=== PATIENT | male | born 1965 | race Caucasian/White ===

== ENCOUNTER 2018-02-19 05:56 | Inpatient (IN) ==
[2018-02-13 11:54] LABS: Basophils % 0.5 % (0.0-0.8); Eosinophils # 0.3 10*3/uL (0.0-0.87); Eosinophils % 4.5 % (0.00-10.9); Hematocrit 41.9 VOL% (42.0-52.0); Hemoglobin 13.8 GM/DL (14.0-18.0); Immature Granulocytes % 0.5 %; Immature Granulocytes Absolute 0.03 #; Lymphocytes % 31.2 % (21.2-54.2); Mean Corpuscular HGB Conc 32.9 GM/DL (32-36); Mean Corpuscular Hemoglobin 30 PG (27-34); Mean Corpuscular Volume 90.3 FL (87-102); Mean Platelet Volume 9.4 FL (9.6-12.0); Monocytes # 0.5 10*3/uL (0.11-0.8); Monocytes % 7.9 % (1.7-12.7); Neutrophils # 3.6 10*3/uL (1.4-7.4); Neutrophils % 55.4 % (38.7-73.9); Platelet Count 209 T/CUMM (130-400); Red Blood Count 4.64 MC/CUMM (3.8-5.5); Red Cell Distribution Width 12.8 % (9.3-17.3); White Blood Count 6.5 T/CUMM (4-12)
[2018-02-13 12:32] LABS: Albumin 3.9 G/DL (3.4-5.0); Bilirubin,Total 0.5 MG/DL (0.2-1.0); Calcium 8.5 MG/DL (8.5-10.1); Osmolality,Calculated 276.7 MOS/KG (273-304); Potassium 4.3 MMOL/L (3.5-5.1); Total Protein 7.4 G/DL (6.4-8.3)
[2018-02-19] MEDS ORDERED: cefTRIAXone 1,000 MG in SYRINGE 1 EACH IV ONE (06:30)
[2018-02-19] MEDS ORDERED: ceFAZolin 1,000 MG VIAL ONE (06:38)
[2018-02-19] MEDS ORDERED: cefTRIAXone 1,000 MG VIAL ONE ×2 (06:38→10:28)
[2018-02-19] MEDS ORDERED: FAMOTIDINE 20 MG TABLET PO ONE (06:40)
[2018-02-19] MEDS: LACTATED RINGERS 1,000 ML IV SCH ×2 (06:45→09:01)
[2018-02-19] MEDS ORDERED: FAMOTIDINE 20 MG TABLET ONE (06:51)
[2018-02-19 08:36] LABS: Apearance,Urine CLEAR (Clear); Bacteria,Urine Occasional /HPF (Few); Bilirubin,Urine Negative (Negative); Blood, Urine Negative (Negative); Glucose,Urine (UA) Negative (Negative); Ketones,Urine Negative (Negative); Mucus,Urine Occasional /LPF (Occasional); Nitrite,Urine Negative (Negative); Protein,Urine Negative; RBC,Urine 2 /HPF (0-4); Squamous Epithelial Cell,Urine Occasional /HPF (0-10); Urine Color Yellow (Yellow); Urine Specific Gravity 1.015 (1.001-1.035); Urine Urobilinogen < 2.0 EU/DL (0.2-1.0); WBC,Urine <1 /HPF (0-6)
[2018-02-19] MEDS ORDERED: BUPIVACAINE 0.5% 50 ML VIAL ONE (08:39)
[2018-02-19 09:02] LABS: ABG Base Excess -1.6 MMOL/L (-2.5-2.5); ABG Oxygen Saturation 93.6 % (95-100); ABG PCO2 51.6 MM HG (35-48); ABG PH 7.306 (7.35-7.45); ABG PO2 77.3 MM HG (80-95); ABG TCO2 22.4 MMOL/L (23-27); Glucose Heart Surgery 162 MG/DL (74-106); Hematocrit Heart Surgery 43.8 PERCENT (42-52); Hemoglobin Heart Surgery 14.3 G/DL (14.0-18.0); Ionized Calcium Arterial 1.21 MMOL/L (1.21-1.46); PCO2 Patient Temp Arterial 51.6 MMHG; PH Patient Temp Arterial 7.306; PO2 Patient Temp Arterial 77.3 MM HG; Patient Temperature 37 CELCIUS; Potassium Heart/CVR 4.3 MMOL/L (3.5-5.1); Sodium Heart/CVR 137 MMOL/L (135-145)
[2018-02-19 10:08] LABS: ABG Base Excess -2.3 MMOL/L (-2.5-2.5); ABG HCO3 22.4 MMOL/L (20-26); ABG Oxygen Saturation 96.3 % (95-100); ABG PCO2 46.7 MM HG (35-48); ABG PH 7.322 (7.35-7.45); ABG PO2 91.8 MM HG (80-95); Glucose Heart Surgery 171 MG/DL (74-106); Hematocrit Heart Surgery 44.2 PERCENT (42-52); Hemoglobin Heart Surgery 14.4 G/DL (14.0-18.0); PCO2 Patient Temp Arterial 46.7 MMHG; PH Patient Temp Arterial 7.322; PO2 Patient Temp Arterial 91.8 MM HG; Patient Temperature 37 CELCIUS; Potassium Heart/CVR 4.7 MMOL/L (3.5-5.1); Sodium Heart/CVR 138 MMOL/L (135-145)
[2018-02-19] MEDS ORDERED: PROMETHAZINE 25 MG/1 ML VIAL IM PRN (11:03)
[2018-02-19] MEDS ORDERED: HYDROmorphone 2 MG/1 ML VIAL IV PRN (11:03)
[2018-02-19] MEDS ORDERED: LABETALOL 20 MG/4 ML SYRINGE IV PRN (11:10)
[2018-02-19] MEDS ORDERED: ALBUTEROL 1.25 MG/3 ML NEB RESP TX ONE (11:39)
[2018-02-19] MEDS ORDERED: PROPOFOL 200 MG/20 ML VIAL IV ONE (11:44)
[2018-02-19] MEDS ORDERED: DESFLURANE 1 UNIT/15 MINUTE INH ONE (11:45)
[2018-02-19] MEDS ORDERED: PHENYLEPHRINE DRIP 20 MG/250 ML PREMIX IV ONE (11:45)
[2018-02-19] MEDS ORDERED: ONDANSETRON 4 MG/2 ML VIAL ONE ×2 (11:46→11:47)
[2018-02-19] MEDS ORDERED: HYDROmorphone 2 MG/1 ML VIAL ONE ×2 (11:46→11:47)
[2018-02-19] MEDS ORDERED: DEXAMETHASONE 10 MG/1 ML VIAL ONE (11:46)
[2018-02-19] MEDS ORDERED: ALBUTEROL INHALER 8 GM INH ONE (11:46)
[2018-02-19] MEDS ORDERED: GLYCOPYRROLATE 0.4 MG/2 ML VIAL ONE (11:46)
[2018-02-19] MEDS ORDERED: MIDAZOLAM 2 MG/2 ML VIAL ONE (11:46)
[2018-02-19] MEDS ORDERED: PHENYLEPHRINE 1 MG/10 ML SYRINGE IV ONE (11:46)
[2018-02-19] MEDS ORDERED: LACTATED RINGERS 1,000 ML IV ONE (11:47)
[2018-02-19] MEDS ORDERED: ONDANSETRON 4 MG/2 ML VIAL IV PRN (11:47)
[2018-02-19] MEDS ORDERED: ROCURONIUM 100 MG/10 ML VIAL IV ONE (11:47)
[2018-02-19] MEDS ORDERED: NEOSTIGMINE 10 MG/10 ML VIAL ONE (11:47)
[2018-02-19 11:49] LABS: Basophils % 0.2 % (0.0-0.8); Eosinophils # 0.1 10*3/uL (0.0-0.87); Eosinophils % 0.4 % (0.00-10.9); Hematocrit 41.4 VOL% (42.0-52.0); Hemoglobin 13.6 GM/DL (14.0-18.0); Immature Granulocytes % 0.6 %; Immature Granulocytes Absolute 0.07 #; Lymphocytes # 1.7 10*3/uL (1.4-4.0); Lymphocytes % 13.5 % (21.2-54.2); Mean Corpuscular HGB Conc 32.9 GM/DL (32-36); Mean Corpuscular Hemoglobin 30 PG (27-34); Mean Platelet Volume 9.3 FL (9.6-12.0); Monocytes # 0.6 10*3/uL (0.11-0.8); Monocytes % 4.6 % (1.7-12.7); Neutrophils # 10.1 10*3/uL (1.4-7.4); Neutrophils % 80.7 % (38.7-73.9); Platelet Count 239 T/CUMM (130-400); Red Blood Count 4.55 MC/CUMM (3.8-5.5); White Blood Count 12.5 T/CUMM (4-12)
[2018-02-19] MEDS: HYDROmorphone 2 MG/1 ML VIAL IV PRN ×4 (11:50→12:05)
[2018-02-19 12:10] LABS: Osmolality,Calculated 281.5 MOS/KG (273-304); Potassium 4.5 MMOL/L (3.5-5.1)
[2018-02-19] MEDS ORDERED: ACETAMINOPHEN 1,000 MG/100 ML VIAL IV ONE (12:21)
[2018-02-19] MEDS ORDERED: ACETAMINOPHEN INJ 1,000 MG in PREMIX 1 EACH IV STA (12:22)
[2018-02-19] MEDS ORDERED: HYDROmorphone PCA 30 MG/30 ML SYRINGE IV ONE (12:31)
[2018-02-19] MEDS ORDERED: NALOXONE 0.4 MG/ML VIAL IV PRN (12:33)
[2018-02-19] MEDS: HYDROmorphone PCA 30 MG/30 ML SYRINGE IV SCH (12:37)
[2018-02-19] MEDS: ONDANSETRON 4 MG/2 ML VIAL IV PRN ×2 (15:06→19:56)
[2018-02-19] MEDS: LEVODOPA PO SCH ×2 (15:47→23:10)
[2018-02-19] MEDS: rOPINIRole 1 MG TABLET PO SCH ×2 (15:47→23:10)
[2018-02-19] MEDS: CARBIDOPA PO SCH ×2 (15:47→23:10)
[2018-02-19] MEDS: SODIUM CHLORIDE 0.9% 1,000 ML IV SCH ×2 (15:47→23:55)
[2018-02-19] MEDS: ACETAMINOPHEN 325 MG TABLET PO SCH (18:28)
[2018-02-19] MEDS: PANTOPRAZOLE 40 MG TABLET PO SCH (23:10)
[2018-02-19] MEDS: DOCUSATE SODIUM 100 MG CAPSULE PO SCH (23:10)
[2018-02-20] MEDS: ONDANSETRON 4 MG/2 ML VIAL IV PRN ×3 (00:05→23:50)
[2018-02-20] MEDS: ACETAMINOPHEN 325 MG TABLET PO SCH ×5 (00:08→23:51)
[2018-02-20 06:39] LABS: Basophils % 0.1 % (0.0-0.8); Hematocrit 38.9 VOL% (42.0-52.0); Hemoglobin 12.8 GM/DL (14.0-18.0); Immature Granulocytes % 0.5 %; Immature Granulocytes Absolute 0.06 #; Lymphocytes # 1.1 10*3/uL (1.4-4.0); Lymphocytes % 8.5 % (21.2-54.2); Mean Corpuscular HGB Conc 32.9 GM/DL (32-36); Mean Corpuscular Hemoglobin 30 PG (27-34); Mean Corpuscular Volume 90.5 FL (87-102); Monocytes # 0.9 10*3/uL (0.11-0.8); Monocytes % 7.5 % (1.7-12.7); Neutrophils # 10.3 10*3/uL (1.4-7.4); Neutrophils % 83.4 % (38.7-73.9); Platelet Count 239 T/CUMM (130-400); Red Cell Distribution Width 13.3 % (9.3-17.3); White Blood Count 12.4 T/CUMM (4-12)
[2018-02-20 07:09] LABS: Calcium 8.5 MG/DL (8.5-10.1); Osmolality,Calculated 280.5 MOS/KG (273-304)
[2018-02-20] MEDS: SODIUM CHLORIDE 0.9% 1,000 ML IV SCH ×2 (08:34→19:10)
[2018-02-20] MEDS ORDERED: LOSARTAN 50 MG TABLET PO SCH (09:00)
[2018-02-20] MEDS: DOCUSATE SODIUM 100 MG CAPSULE PO SCH ×2 (09:09→20:43)
[2018-02-20] MEDS: FINASTERIDE 5 MG TABLET PO SCH (09:09)
[2018-02-20] MEDS: LORATADINE 10 MG TABLET PO SCH (09:09)
[2018-02-20] MEDS: TAMSULOSIN 0.4 MG CAPSULE PO SCH (09:09)
[2018-02-20] MEDS: CARBIDOPA PO SCH ×3 (09:09→20:45)
[2018-02-20] MEDS: LEVODOPA PO SCH ×3 (09:09→20:45)
[2018-02-20] MEDS: rOPINIRole 1 MG TABLET PO SCH ×3 (09:09→20:45)
[2018-02-20] MEDS: HYDROmorphone PCA 30 MG/30 ML SYRINGE IV SCH (15:29)
[2018-02-20] MEDS ORDERED: FUROSEMIDE 20 MG/2 ML VIAL IV ONE (18:31)
[2018-02-20] MEDS ORDERED: FUROSEMIDE 40 MG/4 ML VIAL ONE (18:37)
[2018-02-20] MEDS: HYDROmorphone 2 MG/1 ML VIAL IV PRN ×2 (20:43→23:49)
[2018-02-20] MEDS: PANTOPRAZOLE 40 MG TABLET PO SCH (20:43)
[2018-02-21] MEDS: HYDROmorphone 2 MG/1 ML VIAL IV PRN (03:36)
[2018-02-21] MEDS: ONDANSETRON 4 MG/2 ML VIAL IV PRN ×5 (03:36→23:31)
[2018-02-21] MEDS: ACETAMINOPHEN 325 MG TABLET PO SCH ×4 (06:01→23:30)
[2018-02-21 07:00] LABS: Calcium 8.4 MG/DL (8.5-10.1); Osmolality,Calculated 282.4 MOS/KG (273-304); Potassium 3.8 MMOL/L (3.5-5.1)
[2018-02-21] MEDS ORDERED: POTASSIUM CHLORIDE 20 MEQ TABLET PO ONE (07:17)
[2018-02-21] MEDS ORDERED: BISACODYL 10 MG SUPP RECTAL ONE (07:18)
[2018-02-21] MEDS ORDERED: SODIUM CHLORIDE 0.9% 500 ML IV ONE ×2 (08:10→08:11)
[2018-02-21] MEDS ORDERED: oxyCODONE/ACETAMINOPHEN 5-325 MG TABLET ONE (08:25)
[2018-02-21] MEDS: FINASTERIDE 5 MG TABLET PO SCH (09:14)
[2018-02-21] MEDS: LORATADINE 10 MG TABLET PO SCH (09:14)
[2018-02-21] MEDS: rOPINIRole 1 MG TABLET PO SCH ×3 (09:14→20:28)
[2018-02-21] MEDS: TAMSULOSIN 0.4 MG CAPSULE PO SCH (09:15)
[2018-02-21] MEDS: DOCUSATE SODIUM 100 MG CAPSULE PO SCH ×2 (09:15→20:28)
[2018-02-21] MEDS: oxyCODONE/ACETAMINOPHEN 5-325 MG TABLET PO PRN ×4 (09:15→23:29)
[2018-02-21] MEDS: LEVODOPA PO SCH ×3 (09:17→20:29)
[2018-02-21] MEDS: CARBIDOPA PO SCH ×3 (09:17→20:29)
[2018-02-21] MEDS: PANTOPRAZOLE 40 MG TABLET PO SCH (20:28)
[2018-02-22] MEDS: oxyCODONE/ACETAMINOPHEN 5-325 MG TABLET PO PRN ×4 (04:17→20:44)
[2018-02-22] MEDS: ONDANSETRON 4 MG/2 ML VIAL IV PRN (04:17)
[2018-02-22] MEDS: ACETAMINOPHEN 325 MG TABLET PO SCH ×3 (05:19→18:49)
[2018-02-22 06:19] LABS: Basophils % 0.2 % (0.0-0.8); Eosinophils # 0.4 10*3/uL (0.0-0.87); Eosinophils % 3.9 % (0.00-10.9); Hematocrit 39.4 VOL% (42.0-52.0); Hemoglobin 12.6 GM/DL (14.0-18.0); Immature Granulocytes % 0.7 %; Immature Granulocytes Absolute 0.06 #; Lymphocytes # 1.5 10*3/uL (1.4-4.0); Lymphocytes % 16.2 % (21.2-54.2); Mean Corpuscular Hemoglobin 29 PG (27-34); Mean Corpuscular Volume 91.8 FL (87-102); Mean Platelet Volume 9.8 FL (9.6-12.0); Monocytes # 0.7 10*3/uL (0.11-0.8); Monocytes % 7.2 % (1.7-12.7); Neutrophils # 6.5 10*3/uL (1.4-7.4); Neutrophils % 71.8 % (38.7-73.9); Platelet Count 221 T/CUMM (130-400); Red Blood Count 4.29 MC/CUMM (3.8-5.5); Red Cell Distribution Width 13.4 % (9.3-17.3)
[2018-02-22 06:31] LABS: Calcium 8.4 MG/DL (8.5-10.1); Osmolality,Calculated 271.1 MOS/KG (273-304); Potassium 3.6 MMOL/L (3.5-5.1)
[2018-02-22] MEDS: LEVODOPA PO SCH ×3 (08:54→20:44)
[2018-02-22] MEDS: CARBIDOPA PO SCH ×3 (08:54→20:44)
[2018-02-22] MEDS: FINASTERIDE 5 MG TABLET PO SCH (08:55)
[2018-02-22] MEDS: DOCUSATE SODIUM 100 MG CAPSULE PO SCH ×2 (08:55→20:44)
[2018-02-22] MEDS: LORATADINE 10 MG TABLET PO SCH (08:55)
[2018-02-22] MEDS: TAMSULOSIN 0.4 MG CAPSULE PO SCH (08:55)
[2018-02-22] MEDS: rOPINIRole 1 MG TABLET PO SCH ×3 (08:56→20:44)
[2018-02-22] MEDS: ONDANSETRON 4 MG TABLET PO PRN ×3 (09:08→20:44)
[2018-02-22] MEDS: PANTOPRAZOLE 40 MG TABLET PO SCH (20:44)
[2018-02-23] MEDS: ACETAMINOPHEN 325 MG TABLET PO SCH ×2 (00:40→06:10)
[2018-02-23 07:36] VITALS: BP 136/71
[2018-02-23] MEDS: FINASTERIDE 5 MG TABLET PO SCH (08:51)
[2018-02-23] MEDS: DOCUSATE SODIUM 100 MG CAPSULE PO SCH (08:51)
[2018-02-23] MEDS: LORATADINE 10 MG TABLET PO SCH (08:51)
[2018-02-23] MEDS: TAMSULOSIN 0.4 MG CAPSULE PO SCH (08:51)
[2018-02-23] MEDS: LEVODOPA PO SCH (09:09)
[2018-02-23] MEDS: CARBIDOPA PO SCH (09:09)
[2018-02-23] MEDS: rOPINIRole 1 MG TABLET PO SCH (09:11)
[2018-02-23] MEDS: ONDANSETRON 4 MG TABLET PO PRN (10:25)
[2018-02-23] MEDS: oxyCODONE/ACETAMINOPHEN 5-325 MG TABLET PO PRN (10:25)
== END 2018-02-23 10:56 | disposition home health service (06) | DRG 657 ==
LOC: N.OR 05:56 → N.SDSINP 05:58 → N.5E 11:03
PROVIDERS: ADMIT Surgery; ATTEND Surgery

== ENCOUNTER 2020-06-24 11:08 | Observation (INO) ==
[~2020-06-24 11:08] MED LIST: PANTOPRAZOLE 40 MG VIAL IV SCH
[2020-06-24] MEDS ORDERED: SODIUM CHLORIDE 0.9% 500 ML IV STA (11:45)
[2020-06-24] MEDS ORDERED: INSULIN REGULAR 100 UNIT/ML IV STA (11:47)
[2020-06-24 12:30] LABS: Basophils # 0.1 10*3/uL (0.0-0.2); Basophils % 0.7 % (0.0-0.8); Eosinophils # 0.3 10*3/uL (0.0-0.87); Eosinophils % 4.4 % (0.00-10.9); Hematocrit 44.8 VOL% (42.0-52.0); Hemoglobin 15.1 GM/DL (14.0-18.0); Immature Granulocytes % 0.6 %; Immature Granulocytes Absolute 0.04 #; Lymphocytes # 1.9 10*3/uL (1.4-4.0); Lymphocytes % 27.7 % (21.2-54.2); Mean Corpuscular HGB Conc 33.7 GM/DL (32-36); Mean Corpuscular Volume 86.7 FL (87-102); Mean Platelet Volume 10.3 FL (9.6-12.0); Monocytes % 7.7 % (1.7-12.7); Neutrophils % 58.9 % (38.7-73.9); Platelet Count 215 T/CUMM (130-400); Red Blood Count 5.17 MC/CUMM (3.8-5.5); Red Cell Distribution Width 13.1 % (9.3-17.3); White Blood Count 6.9 T/CUMM (4-12)
[2020-06-24 12:41] LABS: ABG Base Excess -4.8 MMOL/L (-2.5-2.5); ABG HCO3 20.4 MMOL/L (20-26); ABG Oxygen Saturation 95.8 % (95-100); ABG PCO2 35.6 MM HG (35-48); ABG PH 7.357 (7.35-7.45); ABG PO2 83.6 MM HG (80-95)
[2020-06-24 12:53] LABS: Alanine Aminotransferase 19 U/L (16-61); Albumin 3.8 G/DL (3.4-5.0); Alkaline Phosphatase 134 U/L (45-117); Aspartate Amino Transferase 16 U/L (0-37); Blood Urea Nitrogen 25 MG/DL (7-18); Carbon Dioxide 20 MMOL/L (21-32); Estimated Glom Filtration Rate 101 ML/MIN; Osmolality,Calculated 292.7 MOS/KG (273-304); Potassium 4.3 MMOL/L (3.5-5.1); Sodium 131 MMOL/L (136-145)
[2020-06-24 12:55] LABS: Glucose 579 MG/DL (74-106)
[2020-06-24 13:45] LABS: Barbiturates Screen,Urine Negative (Negative); Benzodiazepines Screen,Urine Negative (Negative); Cannabinoid Screen,Urine Negative (Negative); Opiate Screen,Urine Negative (Negative); Phencyclidine Screen,Urine Negative (Negative)
[2020-06-24 14:42] LABS: Bilirubin,Urine Negative (Negative); Blood, Urine Negative (Negative); Glucose,Urine (UA) >=500 mg/dL (Negative); Ketones,Urine 20 mg/dL (Negative); Mucus,Urine Occasional /LPF (Occasional); Nitrite,Urine Negative (Negative); Protein,Urine Negative; RBC,Urine 1 /HPF (0-4); Urine Appearance CLEAR (Clear); Urine Color Straw (Yellow); Urine Specific Gravity 1.026 (1.001-1.035); Urine Urobilinogen < 2.0 EU/DL (0.2-1.0); WBC,Urine <1 /HPF (0-6)
[2020-06-24] MEDS ORDERED: ONDANSETRON 4 MG/2 ML VIAL IV PRN (15:09)
[2020-06-24] MEDS ORDERED: hydrALAZINE 20 MG/1 ML VIAL IV PRN (15:09)
[2020-06-24] MEDS ORDERED: GLUCAGON 1 MG VIAL IM PRN ×2 (15:09)
[2020-06-24] MEDS ORDERED: AZITHROMYCIN INJ 500 MG in SODIUM CHLORIDE 0.9% 250 ML IV ONE (15:09)
[2020-06-24] MEDS ORDERED: DEXTROSE 50% 25 GM/50 ML VIAL IV PRN ×2 (15:09)
[2020-06-24] MEDS ORDERED: ENOXAPARIN 40 MG/0.4 ML SYRINGE SUBCUT SCH (15:30)
[2020-06-24] MEDS ORDERED: INSULIN LISPRO 100 UNIT/ML SUBCUT SCH (16:30)
[2020-06-24] MEDS ORDERED: cefTRIAXone 1,000 MG in SYRINGE 1 EACH IV SCH (18:30)
[2020-06-24] MEDS: ALBUTEROL/IPRATROPIUM 3 ML NEB RESP TX SCH (19:06)
[2020-06-24] MEDS: INSULIN LISPRO 100 UNIT/ML SUBCUT SCH ×3 (19:07→23:41)
[2020-06-24 19:27] LABS: Calcium 9.1 MG/DL (8.5-10.1); Osmolality,Calculated 285.1 MOS/KG (273-304); Potassium 3.6 MMOL/L (3.5-5.1)
[2020-06-24 19:30] LABS: ABG Base Excess -1.7 MMOL/L (-2.5-2.5); ABG HCO3 22.9 MMOL/L (20-26); ABG Oxygen Saturation 92.6 % (95-100); ABG PCO2 35.9 MM HG (35-48); ABG PH 7.405 (7.35-7.45); ABG PO2 65.1 MM HG (80-95); ABG TCO2 19.3 MMOL/L (23-27); Allen Test Positive; Pt O2 Delivery Device Room Air
[2020-06-24] MEDS: SODIUM CHLORIDE 0.9% 1,000 ML IV SCH (20:14)
[2020-06-24] MEDS ORDERED: PANTOPRAZOLE 40 MG VIAL IV SCH (21:00)
[2020-06-25] MEDS: ALBUTEROL/IPRATROPIUM 3 ML NEB RESP TX SCH ×2 (00:04→07:33)
[2020-06-25] MEDS: INSULIN LISPRO 100 UNIT/ML SUBCUT SCH ×3 (00:35→04:31)
[2020-06-25] MEDS: SODIUM CHLORIDE 0.9% 1,000 ML IV SCH ×2 (02:55→09:14)
[2020-06-25 04:00] LABS: ABG Base Excess 0.4 MMOL/L (-2.5-2.5); ABG HCO3 24.7 MMOL/L (20-26); ABG Oxygen Saturation 95.3 % (95-100); ABG PH 7.427 (7.35-7.45); ABG PO2 73.6 MM HG (80-95); ABG TCO2 21.1 MMOL/L (23-27); Allen Test Positive; Pt O2 Delivery Device Room Air
[2020-06-25 06:47] LABS: Basophils % 0.5 % (0.0-0.8); Eosinophils # 0.4 10*3/uL (0.0-0.87); Eosinophils % 5.6 % (0.00-10.9); Hematocrit 38.8 VOL% (42.0-52.0); Hemoglobin 13.4 GM/DL (14.0-18.0); Immature Granulocytes % 0.5 %; Immature Granulocytes Absolute 0.03 #; Lymphocytes # 2.5 10*3/uL (1.4-4.0); Lymphocytes % 38.4 % (21.2-54.2); Mean Corpuscular HGB Conc 34.5 GM/DL (32-36); Mean Corpuscular Volume 86.8 FL (87-102); Mean Platelet Volume 10.4 FL (9.6-12.0); Monocytes % 8.2 % (1.7-12.7); Neutrophils % 46.8 % (38.7-73.9); Platelet Count 200 T/CUMM (130-400); Red Blood Count 4.47 MC/CUMM (3.8-5.5); Red Cell Distribution Width 13.2 % (9.3-17.3); White Blood Count 6.5 T/CUMM (4-12)
[2020-06-25 07:07] LABS: Calcium 8.3 MG/DL (8.5-10.1); Osmolality,Calculated 285.3 MOS/KG (273-304); Potassium 3.3 MMOL/L (3.5-5.1)
[2020-06-25 07:09] LABS: Bilirubin,Total 1.1 MG/DL (0.2-1.0); Calcium 8.4 MG/DL (8.5-10.1); Osmolality,Calculated 283.4 MOS/KG (273-304); Potassium 3.3 MMOL/L (3.5-5.1); Risk Ratio 4.34; Total Protein 6.3 G/DL (6.4-8.3); VLDL CHOLESTEROL 31.4 MG/DL
[2020-06-25] MEDS ORDERED: INSULIN LISPRO 100 UNIT/ML SUBCUT SCH (08:00)
[2020-06-25 12:27] VITALS: BP 133/79
[2020-06-25] MEDS ORDERED: AZITHROMYCIN INJ 250 MG in SODIUM CHLORIDE 0.9% 250 ML IV SCH (16:00)
== END 2020-06-25 13:22 | disposition home or self-care (01) ==
LOC: N.ED 11:08 → N.EDINP 11:08 → SUATTDRO 15:02 → N.EDINP 17:45 → N.5E 17:49
PROVIDERS: ADMIT Internal Medicine; ATTEND Internal Medicine

== ENCOUNTER 2020-11-18 16:02 | Inpatient (IN) ==
[2020-11-18 16:28] LABS: Basophils % 0.3 % (0.0-0.8); Eosinophils # 0.4 10*3/uL (0.0-0.87); Eosinophils % 3.9 % (0.00-10.9); Hematocrit 42.2 VOL% (42.0-52.0); Hemoglobin 14.3 GM/DL (14.0-18.0); Immature Granulocytes % 0.3 %; Immature Granulocytes Absolute 0.03 #; Lymphocytes # 2.4 10*3/uL (1.4-4.0); Lymphocytes % 27.5 % (21.2-54.2); Mean Corpuscular HGB Conc 33.9 GM/DL (32-36); Mean Corpuscular Volume 86.5 FL (87-102); Mean Platelet Volume 9.4 FL (9.6-12.0); Platelet Count 217 T/CUMM (130-400); Red Blood Count 4.88 MC/CUMM (3.8-5.5); Red Cell Distribution Width 13.4 % (9.3-17.3); White Blood Count 8.9 T/CUMM (4-12)
[2020-11-18 16:53] LABS: Alanine Aminotransferase 19 U/L (16-61); Albumin 4.2 G/DL (3.4-5.0); Alkaline Phosphatase 66 U/L (45-117); Aspartate Amino Transferase 15 U/L (0-37); Bilirubin,Total < 0.39 MG/DL (0.20-1.00); Blood Urea Nitrogen 18 MG/DL (7-18); Calcium 9.2 MG/DL (8.5-10.1); Carbon Dioxide 25 MMOL/L (21-32); Estimated Glom Filtration Rate 83 ML/MIN; Glucose 109 MG/DL (74-106); Osmolality,Calculated 283.3 MOS/KG (273-304); Potassium 3.9 MMOL/L (3.5-5.1); Sodium 141 MMOL/L (136-145); Total Protein 7.2 G/DL (6.4-8.2)
[2020-11-18] MEDS ORDERED: ASPIRIN 325 MG TABLET PO STA (17:13)
[2020-11-18] MEDS: NITROGLYCERIN SL 0.4 MG TABLET SL PRN (17:23)
[2020-11-18 18:09] LABS: INR 0.9; PT Patient Result 9.9 SECS (10.5-12.0)
[2020-11-18 20:30] LABS: Risk Ratio 3.47
[2020-11-18] MEDS ORDERED: GLUCAGON 1 MG VIAL IM PRN (21:51)
[2020-11-18] MEDS ORDERED: ACETAMINOPHEN 325 MG TABLET PO PRN (21:51)
[2020-11-18] MEDS ORDERED: DEXTROSE 50% 25 GM/50 ML VIAL IV PRN (21:51)
[2020-11-18] MEDS ORDERED: hydrALAZINE 20 MG/1 ML VIAL IV PRN (21:51)
[2020-11-18] MEDS ORDERED: PROMETHAZINE 25 MG/1 ML VIAL IM PRN (21:51)
[2020-11-18] MEDS: ENOXAPARIN 40 MG/0.4 ML SYRINGE SUBCUT SCH (22:52)
[2020-11-18] MEDS: POLYETHYLENE GLYCOL POWDER 255 GM BOTTLE PO SCH (22:52)
[2020-11-18] MEDS: TAMSULOSIN 0.4 MG CAPSULE PO SCH (22:52)
[2020-11-18] MEDS: SODIUM CHLORIDE 0.9% 1,000 ML IV SCH (23:40)
[2020-11-19 04:22] LABS: Basophils % 0.3 % (0.0-0.8); Eosinophils # 0.3 10*3/uL (0.0-0.87); Eosinophils % 4.1 % (0.00-10.9); Hematocrit 42.7 VOL% (42.0-52.0); Hemoglobin 14.1 GM/DL (14.0-18.0); Immature Granulocytes % 0.4 %; Immature Granulocytes Absolute 0.03 #; Mean Corpuscular Volume 87.5 FL (87-102); Mean Platelet Volume 9.6 FL (9.6-12.0); Monocytes % 7.5 % (1.7-12.7); Neutrophils % 58.7 % (38.7-73.9); Platelet Count 182 T/CUMM (130-400); Red Blood Count 4.88 MC/CUMM (3.8-5.5); Red Cell Distribution Width 13.4 % (9.3-17.3); White Blood Count 6.8 T/CUMM (4-12)
[2020-11-19 05:00] LABS: Albumin 3.7 G/DL (3.4-5.0); Bilirubin,Total 0.4 MG/DL (0.20-1.00); Calcium 8.4 MG/DL (8.5-10.1); Osmolality,Calculated 281.1 MOS/KG (273-304); Potassium 3.7 MMOL/L (3.5-5.1); Total Protein 6.8 G/DL (6.4-8.2)
[2020-11-19] MEDS: LEVODOPA PO SCH ×3 (08:03→16:36)
[2020-11-19] MEDS: CARBIDOPA PO SCH ×3 (08:03→16:36)
[2020-11-19] MEDS: rOPINIRole 1 MG TABLET PO SCH ×3 (08:04→16:36)
[2020-11-19] MEDS: INSULIN LISPRO 100 UNIT/ML SUBCUT SCH ×4 (09:05→20:52)
[2020-11-19] MEDS: OLMESARTAN 5 MG TABLET PO SCH (09:06)
[2020-11-19] MEDS: MULTIVITAMIN (CENTRUM) TABLET PO SCH (09:06)
[2020-11-19] MEDS: INSULIN GLARGINE 100 UNIT/ML SUBCUT SCH (09:06)
[2020-11-19] MEDS: PANTOPRAZOLE 40 MG TABLET PO SCH (09:07)
[2020-11-19] MEDS: FENOFIBRATE 145 MG TABLET PO SCH (09:07)
[2020-11-19] MEDS: EZETIMIBE 10 MG TABLET PO SCH (09:07)
[2020-11-19] MEDS: FINASTERIDE 5 MG TABLET PO SCH (09:07)
[2020-11-19] MEDS: LORATADINE 10 MG TABLET PO SCH (09:07)
[2020-11-19] MEDS: AMANTADINE 100 MG CAPSULE PO SCH (09:07)
[2020-11-19] MEDS: ASPIRIN EC 81 MG TABLET PO SCH (09:07)
[2020-11-19] MEDS: DILTIAZEM CD 180 MG CAPSULE PO SCH (09:08)
[2020-11-19] MEDS: SODIUM CHLORIDE 0.9% 1,000 ML IV SCH ×3 (09:48→20:39)
[2020-11-19] MEDS: POLYETHYLENE GLYCOL POWDER 255 GM BOTTLE PO SCH (20:52)
[2020-11-19] MEDS: TAMSULOSIN 0.4 MG CAPSULE PO SCH (21:17)
[2020-11-19] MEDS: ENOXAPARIN 40 MG/0.4 ML SYRINGE SUBCUT SCH (21:18)
[2020-11-20] MEDS: NITROGLYCERIN SL 0.4 MG TABLET SL PRN (00:13)
[2020-11-20] MEDS: ONDANSETRON 4 MG/2 ML VIAL IV PRN (01:20)
[2020-11-20] MEDS: HYDROmorphone 2 MG/1 ML VIAL IV PRN (01:21)
[2020-11-20] MEDS: SODIUM CHLORIDE 0.9% 1,000 ML IV SCH ×3 (04:22→16:28)
[2020-11-20 05:54] LABS: Basophils % 0.4 % (0.0-0.8); Eosinophils # 0.3 10*3/uL (0.0-0.87); Eosinophils % 4.1 % (0.00-10.9); Hematocrit 43.7 VOL% (42.0-52.0); Hemoglobin 14.4 GM/DL (14.0-18.0); Immature Granulocytes % 0.3 %; Immature Granulocytes Absolute 0.02 #; Lymphocytes # 2.1 10*3/uL (1.4-4.0); Mean Corpuscular Volume 88.1 FL (87-102); Mean Platelet Volume 9.7 FL (9.6-12.0); Monocytes % 9.2 % (1.7-12.7); Platelet Count 180 T/CUMM (130-400); Red Blood Count 4.96 MC/CUMM (3.8-5.5); Red Cell Distribution Width 13.6 % (9.3-17.3); White Blood Count 7.4 T/CUMM (4-12)
[2020-11-20 06:21] LABS: Albumin 3.6 G/DL (3.4-5.0); Bilirubin,Total 1.1 MG/DL (0.20-1.00); Calcium 8.6 MG/DL (8.5-10.1); Osmolality,Calculated 275.7 MOS/KG (273-304); Potassium 3.8 MMOL/L (3.5-5.1); Total Protein 7.2 G/DL (6.4-8.2)
[2020-11-20] MEDS: rOPINIRole 1 MG TABLET PO SCH ×3 (06:31→16:28)
[2020-11-20] MEDS: LEVODOPA PO SCH ×3 (06:31→16:28)
[2020-11-20] MEDS: CARBIDOPA PO SCH ×3 (06:31→16:28)
[2020-11-20] MEDS: INSULIN LISPRO 100 UNIT/ML SUBCUT SCH ×4 (07:30→21:19)
[2020-11-20] MEDS: EZETIMIBE 10 MG TABLET PO SCH (08:06)
[2020-11-20] MEDS: MULTIVITAMIN (CENTRUM) TABLET PO SCH (08:07)
[2020-11-20] MEDS: AMANTADINE 100 MG CAPSULE PO SCH (08:07)
[2020-11-20] MEDS: ASPIRIN EC 81 MG TABLET PO SCH (08:07)
[2020-11-20] MEDS: FENOFIBRATE 145 MG TABLET PO SCH (08:07)
[2020-11-20] MEDS: OLMESARTAN 5 MG TABLET PO SCH (08:07)
[2020-11-20] MEDS: FINASTERIDE 5 MG TABLET PO SCH (08:07)
[2020-11-20] MEDS: LORATADINE 10 MG TABLET PO SCH (08:07)
[2020-11-20] MEDS: PANTOPRAZOLE 40 MG TABLET PO SCH (08:08)
[2020-11-20] MEDS: DILTIAZEM CD 180 MG CAPSULE PO SCH (08:08)
[2020-11-20] MEDS: INSULIN GLARGINE 100 UNIT/ML SUBCUT SCH (08:09)
[2020-11-20] MEDS: POLYETHYLENE GLYCOL POWDER 255 GM BOTTLE PO SCH ×2 (12:53→21:19)
[2020-11-20] MEDS: ENOXAPARIN 40 MG/0.4 ML SYRINGE SUBCUT SCH (21:16)
[2020-11-20] MEDS: TAMSULOSIN 0.4 MG CAPSULE PO SCH (21:17)
[2020-11-21] MEDS: ONDANSETRON 4 MG/2 ML VIAL IV PRN ×3 (00:02→22:56)
[2020-11-21] MEDS: HYDROmorphone 2 MG/1 ML VIAL IV PRN ×3 (00:03→22:56)
[2020-11-21] MEDS: SODIUM CHLORIDE 0.9% 1,000 ML IV SCH ×4 (02:41→22:40)
[2020-11-21 05:17] LABS: Calcium 8.7 MG/DL (8.5-10.1); Osmolality,Calculated 276.5 MOS/KG (273-304)
[2020-11-21] MEDS: LEVODOPA PO SCH ×3 (06:03→16:26)
[2020-11-21] MEDS: rOPINIRole 1 MG TABLET PO SCH ×3 (06:03→16:26)
[2020-11-21] MEDS: CARBIDOPA PO SCH ×3 (06:03→16:26)
[2020-11-21] MEDS: INSULIN LISPRO 100 UNIT/ML SUBCUT SCH ×4 (07:44→21:10)
[2020-11-21] MEDS: PANTOPRAZOLE 40 MG TABLET PO SCH (08:17)
[2020-11-21] MEDS: MULTIVITAMIN (CENTRUM) TABLET PO SCH (08:17)
[2020-11-21] MEDS: OLMESARTAN 5 MG TABLET PO SCH (08:17)
[2020-11-21] MEDS: EZETIMIBE 10 MG TABLET PO SCH (08:17)
[2020-11-21] MEDS: AMANTADINE 100 MG CAPSULE PO SCH (08:18)
[2020-11-21] MEDS: FENOFIBRATE 145 MG TABLET PO SCH (08:18)
[2020-11-21] MEDS: ASPIRIN EC 81 MG TABLET PO SCH (08:18)
[2020-11-21] MEDS: FINASTERIDE 5 MG TABLET PO SCH (08:18)
[2020-11-21] MEDS: LORATADINE 10 MG TABLET PO SCH (08:18)
[2020-11-21] MEDS: INSULIN GLARGINE 100 UNIT/ML SUBCUT SCH (08:19)
[2020-11-21] MEDS: DILTIAZEM CD 180 MG CAPSULE PO SCH (08:19)
[2020-11-21] MEDS: POLYETHYLENE GLYCOL POWDER 255 GM BOTTLE PO SCH ×2 (09:34→21:10)
[2020-11-21] MEDS: TAMSULOSIN 0.4 MG CAPSULE PO SCH (21:07)
[2020-11-21] MEDS: ENOXAPARIN 40 MG/0.4 ML SYRINGE SUBCUT SCH (21:07)
[2020-11-22 05:53] LABS: Osmolality,Calculated 277.5 MOS/KG (273-304); Potassium 4.2 MMOL/L (3.5-5.1)
[2020-11-22] MEDS: HYDROmorphone 2 MG/1 ML VIAL IV PRN ×2 (06:08→16:32)
[2020-11-22] MEDS: ONDANSETRON 4 MG/2 ML VIAL IV PRN ×2 (06:08→16:29)
[2020-11-22] MEDS: rOPINIRole 1 MG TABLET PO SCH ×3 (07:39→17:53)
[2020-11-22] MEDS: CARBIDOPA PO SCH ×3 (07:39→17:53)
[2020-11-22] MEDS: LEVODOPA PO SCH ×3 (07:39→17:53)
[2020-11-22] MEDS: SODIUM CHLORIDE 0.9% 1,000 ML IV SCH ×2 (08:34→17:56)
[2020-11-22] MEDS: INSULIN LISPRO 100 UNIT/ML SUBCUT SCH ×4 (09:28→21:41)
[2020-11-22] MEDS: DILTIAZEM CD 180 MG CAPSULE PO SCH (15:01)
[2020-11-22] MEDS: MULTIVITAMIN (CENTRUM) TABLET PO SCH (15:02)
[2020-11-22] MEDS: ASPIRIN EC 81 MG TABLET PO SCH (15:02)
[2020-11-22] MEDS: OLMESARTAN 5 MG TABLET PO SCH (15:02)
[2020-11-22] MEDS: FINASTERIDE 5 MG TABLET PO SCH (15:03)
[2020-11-22] MEDS: LORATADINE 10 MG TABLET PO SCH (15:03)
[2020-11-22] MEDS: EZETIMIBE 10 MG TABLET PO SCH (15:03)
[2020-11-22] MEDS: PANTOPRAZOLE 40 MG TABLET PO SCH (15:03)
[2020-11-22] MEDS: AMANTADINE 100 MG CAPSULE PO SCH (15:03)
[2020-11-22] MEDS: INSULIN GLARGINE 100 UNIT/ML SUBCUT SCH (15:06)
[2020-11-22] MEDS: FENOFIBRATE 145 MG TABLET PO SCH (15:09)
[2020-11-22] MEDS: POLYETHYLENE GLYCOL POWDER 255 GM BOTTLE PO SCH (21:40)
[2020-11-22] MEDS: TAMSULOSIN 0.4 MG CAPSULE PO SCH (21:40)
[2020-11-22] MEDS: ENOXAPARIN 40 MG/0.4 ML SYRINGE SUBCUT SCH (21:40)
[2020-11-23] MEDS: HYDROmorphone 2 MG/1 ML VIAL IV PRN (04:08)
[2020-11-23] MEDS: ONDANSETRON 4 MG/2 ML VIAL IV PRN (04:09)
[2020-11-23] MEDS: SODIUM CHLORIDE 0.9% 1,000 ML IV SCH ×2 (05:05→13:37)
[2020-11-23 05:09] LABS: Calcium 9.1 MG/DL (8.5-10.1); Osmolality,Calculated 276.5 MOS/KG (273-304); Potassium 3.9 MMOL/L (3.5-5.1)
[2020-11-23] MEDS: rOPINIRole 1 MG TABLET PO SCH ×2 (06:23→11:52)
[2020-11-23] MEDS: LEVODOPA PO SCH ×2 (06:23→11:52)
[2020-11-23] MEDS: CARBIDOPA PO SCH ×2 (06:23→11:52)
[2020-11-23] MEDS: OLMESARTAN 5 MG TABLET PO SCH (09:23)
[2020-11-23] MEDS: FINASTERIDE 5 MG TABLET PO SCH (09:23)
[2020-11-23] MEDS: EZETIMIBE 10 MG TABLET PO SCH (09:23)
[2020-11-23] MEDS: DILTIAZEM CD 180 MG CAPSULE PO SCH (09:24)
[2020-11-23] MEDS: LORATADINE 10 MG TABLET PO SCH (09:24)
[2020-11-23] MEDS: AMANTADINE 100 MG CAPSULE PO SCH (09:24)
[2020-11-23] MEDS: FENOFIBRATE 145 MG TABLET PO SCH (09:24)
[2020-11-23] MEDS: MULTIVITAMIN (CENTRUM) TABLET PO SCH (09:24)
[2020-11-23] MEDS: ASPIRIN EC 81 MG TABLET PO SCH (09:24)
[2020-11-23] MEDS: PANTOPRAZOLE 40 MG TABLET PO SCH (09:24)
[2020-11-23] MEDS: INSULIN LISPRO 100 UNIT/ML SUBCUT SCH ×2 (09:25→11:43)
[2020-11-23] MEDS: INSULIN GLARGINE 100 UNIT/ML SUBCUT SCH (09:26)
[2020-11-23 11:47] VITALS: BP 134/80
== END 2020-11-23 14:33 | disposition home or self-care (01) | DRG 439 ==
LOC: N.ED 16:02 → N.EDINP 16:02 → SUATTDRO 20:13 → N.TELEN 21:09 → SUATTDRO 11-21 12:53
PROVIDERS: ADMIT Internal Medicine; ATTEND Internal Medicine Geriatric Medicine

== ENCOUNTER 2022-04-23 15:32 | Inpatient (IN) ==
[2022-04-23] MEDS ORDERED: SODIUM CHLORIDE 0.9% 1,000 ML IV STA ×2 (16:28→19:02)
[2022-04-23] MEDS ORDERED: ONDANSETRON 4 MG/2 ML VIAL IM STA (16:28)
[2022-04-23 16:42] LABS: Basophils % 0.2 % (0.0-0.8); Eosinophils % 0.2 % (0.00-10.9); Hemoglobin 11.2 GM/DL (14.0-18.0); Immature Granulocytes % 0.5 %; Immature Granulocytes Absolute 0.03 #; Lymphocytes # 0.2 10*3/uL (1.4-4.0); Lymphocytes % 3.4 % (21.2-54.2); Mean Corpuscular HGB Conc 33.9 GM/DL (32-36); Mean Corpuscular Volume 90.9 FL (87-102); Monocytes # 0.7 10*3/uL (0.11-0.8); Monocytes % 11.3 % (1.7-12.7); Neutrophils % 84.4 % (38.7-73.9); Platelet Count 62 T/CUMM (130-400); Red Blood Count 3.63 MC/CUMM (3.8-5.5); Red Cell Distribution Width 13.2 % (9.3-17.3); White Blood Count 5.9 T/CUMM (4-12)
[2022-04-23 16:43] LABS: Arterial Base Excess iSTAT 0 MMOL/L (-2.5-2.5); Arterial Bicarbonate iSTAT 21.1 MMOL/L (20-26); Arterial O2 Saturation iSTAT 97 % (95-100); Arterial PCO2 iSTAT 24 MM HG (35-48); Arterial PO2 iSTAT 76 MM HG (80-95); Arterial Total CO2 iSTAT 22 MMO/L (23-27); Arterial pH iSTAT 7.557 (7.35-7.45)
[2022-04-23] MEDS ORDERED: ACETAMINOPHEN 500 MG TABLET PO STA (17:05)
[2022-04-23 17:09] LABS: Albumin 2.5 G/DL (3.4-5.0); Calcium 7.9 MG/DL (8.5-10.1); Osmolality,Calculated 273.8 MOS/KG (273-304); Potassium 3.5 MMOL/L (3.5-5.1); Total Protein 5.4 G/DL (6.4-8.2)
[2022-04-23 17:16] LABS: INR 3.9; PT Patient Result 39.2 SECS (10.1-12.1)
[2022-04-23 17:22] LABS: Eosinophils 1 % (0-10); Lymphocytes 4 % (20-55); Platelet Estimate Decreased; Total Cells Counted 100
[2022-04-23 19:37] LABS: Bilirubin,Urine Large mg/dL (Negative); Blood, Urine Small mg/dL (Negative); Glucose,Urine (UA) Negative (Negative); Ketones,Urine Trace mg/dL (Negative); Nitrite,Urine Negative (Negative); Protein,Urine 100 mg/dL (Negative); Urine Appearance Slightly Cloudy (Clear); Urine Color Yellow (Yellow); Urine Urobilinogen 0.2 eU/dL (<2.0); Urine pH 5.5 (4.5-8.0)
[2022-04-23 19:40] LABS: Bacteria,Urine Many /HPF (Few); Mucus,Urine Moderate /LPF (Occasional); Sperm,Urine Occasional /HPF (Negative); Squamous Epithelial Cell,Urine Occasional /HPF (0-10)
[2022-04-23] MEDS ORDERED: PIPERACILLIN/TAZOBACTAM 3,375 MG in SODIUM CHLORIDE 0.9% 100 ML IV STA (19:48)
[2022-04-23] MEDS ORDERED: ACETAMINOPHEN 325 MG TABLET PO PRN (21:00)
[2022-04-23] MEDS ORDERED: ZALEPLON 5 MG CAPSULE PO PRN (21:00)
[2022-04-23 21:28] LABS: % Iron Saturation 7.9 % (18-50); Ferritin 647.3 ng/mL (26-388)
[2022-04-23 21:31] LABS: Folate 16.19 NG/ML (5.38-24.0)
[2022-04-24] MEDS: SODIUM CHLORIDE 0.9% 1,000 ML IV SCH ×4 (00:35→21:27)
[2022-04-24 01:16] LABS: Eosinophils % 0.8 % (0.00-10.9); Hematocrit 32.1 VOL% (42.0-52.0); Hemoglobin 10.6 GM/DL (14.0-18.0); Immature Granulocytes % 1.3 %; Immature Granulocytes Absolute 0.05 #; Lymphocytes # 0.3 10*3/uL (1.4-4.0); Lymphocytes % 7.8 % (21.2-54.2); Mean Corpuscular Volume 91.5 FL (87-102); Mean Platelet Volume 11.6 FL (9.6-12.0); Monocytes # 0.3 10*3/uL (0.11-0.8); Monocytes % 8.6 % (1.7-12.7); Neutrophils % 81.5 % (38.7-73.9); Platelet Count 48 T/CUMM (130-400); Red Blood Count 3.51 MC/CUMM (3.8-5.5); Red Cell Distribution Width 13.2 % (9.3-17.3); White Blood Count 3.7 T/CUMM (4-12)
[2022-04-24] MEDS: MORPHINE 2 MG/1 ML SYRINGE IV PRN ×4 (01:25→21:45)
[2022-04-24 01:40] LABS: Alanine Aminotransferase 31 U/L (16-61); Albumin 2.2 G/DL (3.4-5.0); Alkaline Phosphatase 256 U/L (45-117); Aspartate Amino Transferase 129 U/L (0-37); Blood Urea Nitrogen 34 MG/DL (7-18); Calcium 8.1 MG/DL (8.5-10.1); Carbon Dioxide 24 MMOL/L (21-32); Chloride 100 MMOL/L (98-107); Cholesterol 134 MG/DL (50-200); Glucose 145 MG/DL (74-106); HDL Cholesterol < 10 MG/DL (40-60); Osmolality,Calculated 276.4 MOS/KG (273-304); Potassium 3.2 MMOL/L (3.5-5.1); Sodium 133 MMOL/L (136-145); Total Protein 5.6 G/DL (6.4-8.2); Triglycerides 267 MG/DL (2-150); VLDL Cholesterol 53.4 MG/DL
[2022-04-24 01:47] LABS: Eosinophils 2 % (0-10); Lymphocytes 7 % (20-55); Platelet Estimate Decreased; Total Cells Counted 100
[2022-04-24] MEDS: PIPERACILLIN/TAZOBACTAM 3,375 MG in SODIUM CHLORIDE 0.9% 100 ML IV SCH ×3 (05:40→21:32)
[2022-04-24] MEDS ORDERED: POTASSIUM CHLORIDE 20 MEQ TABLET PO ONE (07:37)
[2022-04-24] MEDS ORDERED: ENOXAPARIN 40 MG/0.4 ML SYRINGE SUBCUT SCH (09:00)
[2022-04-24] MEDS: PANTOPRAZOLE 40 MG TABLET PO SCH (09:20)
[2022-04-24] MEDS: OSELTAMIVIR 75 MG CAPSULE PO SCH ×2 (09:20→21:27)
[2022-04-24] MEDS: INSULIN REGULAR 100 UNIT/ML SUBCUT SCH ×4 (09:20→21:27)
[2022-04-24] MEDS: ONDANSETRON 4 MG/2 ML VIAL IV PRN ×2 (11:01→17:11)
[2022-04-24] MEDS: GABAPENTIN 300 MG CAPSULE PO SCH ×2 (15:11→21:27)
[2022-04-24] MEDS: rOPINIRole 1 MG TABLET PO SCH (15:11)
[2022-04-24] MEDS: BACLOFEN 10 MG TABLET PO SCH ×2 (15:11→21:27)
[2022-04-24] MEDS: TAMSULOSIN 0.4 MG CAPSULE PO SCH (21:27)
[2022-04-25] MEDS: MORPHINE 2 MG/1 ML SYRINGE IV PRN ×5 (02:30→20:21)
[2022-04-25] MEDS: SODIUM CHLORIDE 0.9% 1,000 ML IV SCH ×2 (05:04→20:21)
[2022-04-25 05:34] LABS: Eosinophils % 0.7 % (0.00-10.9); Hematocrit 28.3 VOL% (42.0-52.0); Hemoglobin 9.5 GM/DL (14.0-18.0); Immature Granulocytes % 7.6 %; Immature Granulocytes Absolute 0.33 #; Lymphocytes # 0.2 10*3/uL (1.4-4.0); Lymphocytes % 4.4 % (21.2-54.2); Mean Corpuscular HGB Conc 33.6 GM/DL (32-36); Mean Platelet Volume 12.1 FL (9.6-12.0); Monocytes # 0.6 10*3/uL (0.11-0.8); Monocytes % 14.3 % (1.7-12.7); Platelet Count 59 T/CUMM (130-400); Red Blood Count 3.11 MC/CUMM (3.8-5.5); Red Cell Distribution Width 13.5 % (9.3-17.3); White Blood Count 4.4 T/CUMM (4-12)
[2022-04-25] MEDS: PIPERACILLIN/TAZOBACTAM 3,375 MG in SODIUM CHLORIDE 0.9% 100 ML IV SCH ×3 (05:50→20:16)
[2022-04-25 05:57] LABS: Band Neutrophils 6 % (0-10); Hypochromia Slight; Lymphocytes 1 % (20-55); Microcytosis Slight; Platelet Estimate Decreased; Total Cells Counted 100
[2022-04-25 05:59] LABS: Albumin 1.8 G/DL (3.4-5.0); Calcium 7.8 MG/DL (8.5-10.1); Potassium 3.1 MMOL/L (3.5-5.1); Total Protein 4.9 G/DL (6.4-8.2)
[2022-04-25] MEDS: rOPINIRole 1 MG TABLET PO SCH ×3 (06:49→15:45)
[2022-04-25] MEDS: ONDANSETRON 4 MG/2 ML VIAL IV PRN ×4 (06:53→20:21)
[2022-04-25] MEDS ORDERED: POTASSIUM CHLORIDE 20 MEQ TABLET PO ONE (07:17)
[2022-04-25] MEDS: MULTIVITAMIN (CENTRUM) TABLET PO SCH (08:53)
[2022-04-25] MEDS: FINASTERIDE 5 MG TABLET PO SCH (08:54)
[2022-04-25] MEDS: PANTOPRAZOLE 40 MG TABLET PO SCH (08:54)
[2022-04-25] MEDS: GABAPENTIN 300 MG CAPSULE PO SCH ×3 (08:54→20:15)
[2022-04-25] MEDS: OSELTAMIVIR 75 MG CAPSULE PO SCH ×2 (08:54→20:15)
[2022-04-25] MEDS: BACLOFEN 10 MG TABLET PO SCH ×3 (08:54→20:15)
[2022-04-25] MEDS: INSULIN REGULAR 100 UNIT/ML SUBCUT SCH ×4 (08:55→21:23)
[2022-04-25] MEDS: TAMSULOSIN 0.4 MG CAPSULE PO SCH (20:15)
[2022-04-26] MEDS: ONDANSETRON 4 MG/2 ML VIAL IV PRN ×3 (01:37→11:01)
[2022-04-26] MEDS: MORPHINE 2 MG/1 ML SYRINGE IV PRN ×3 (01:38→10:58)
[2022-04-26] MEDS: SODIUM CHLORIDE 0.9% 1,000 ML IV SCH (05:46)
[2022-04-26] MEDS: PIPERACILLIN/TAZOBACTAM 3,375 MG in SODIUM CHLORIDE 0.9% 100 ML IV SCH (05:52)
[2022-04-26 06:14] LABS: Eosinophils # 0.1 10*3/uL (0.0-0.87); Eosinophils % 2.3 % (0.00-10.9); Hematocrit 31.1 VOL% (42.0-52.0); Hemoglobin 10.3 GM/DL (14.0-18.0); Immature Granulocytes % 0.4 %; Immature Granulocytes Absolute 0.02 #; Lymphocytes # 0.4 10*3/uL (1.4-4.0); Lymphocytes % 7.4 % (21.2-54.2); Mean Corpuscular HGB Conc 33.1 GM/DL (32-36); Mean Corpuscular Volume 92.3 FL (87-102); Monocytes # 0.4 10*3/uL (0.11-0.8); Monocytes % 8.1 % (1.7-12.7); Neutrophils % 81.8 % (38.7-73.9); Platelet Count 97 T/CUMM (130-400); Red Blood Count 3.37 MC/CUMM (3.8-5.5); Red Cell Distribution Width 14.2 % (9.3-17.3); White Blood Count 5.3 T/CUMM (4-12)
[2022-04-26 06:20] LABS: Osmolality,Calculated 276.7 MOS/KG (273-304); Potassium 3.9 MMOL/L (3.5-5.1)
[2022-04-26 06:27] LABS: Free T4 (Free Thyroxine) 1.11 NG/DL (0.76-1.46)
[2022-04-26] MEDS: rOPINIRole 1 MG TABLET PO SCH ×2 (07:10→12:35)
[2022-04-26] MEDS: INSULIN REGULAR 100 UNIT/ML SUBCUT SCH ×2 (09:36→12:35)
[2022-04-26] MEDS: BACLOFEN 10 MG TABLET PO SCH (09:45)
[2022-04-26] MEDS: GABAPENTIN 300 MG CAPSULE PO SCH (09:45)
[2022-04-26] MEDS: PANTOPRAZOLE 40 MG TABLET PO SCH (09:45)
[2022-04-26] MEDS: FINASTERIDE 5 MG TABLET PO SCH (09:45)
[2022-04-26] MEDS: MULTIVITAMIN (CENTRUM) TABLET PO SCH (09:45)
[2022-04-26] MEDS: OSELTAMIVIR 75 MG CAPSULE PO SCH (11:42)
[2022-04-26 11:49] VITALS: BP 98/56
== END 2022-04-26 14:00 | disposition home or self-care (01) | DRG 872 ==
LOC: N.ED 15:32 → N.EDINP 20:59 → N.TELEN 04-24 00:47
PROVIDERS: ADMIT Internal Medicine Geriatric Medicine; ATTEND Internal Medicine Geriatric Medicine

== ENCOUNTER 2022-05-08 14:40 | Inpatient (IN) ==
[2022-05-08] MEDS ORDERED: SODIUM CHLORIDE 0.9% 1,000 ML IV STA (15:08)
[2022-05-08 15:57] LABS: Eosinophils % 0.4 % (0.00-10.9); Hematocrit 19.4 VOL% (42.0-52.0); Hemoglobin 6.8 GM/DL (14.0-18.0); Immature Granulocytes % 1.7 %; Immature Granulocytes Absolute 0.08 #; Lymphocytes # 0.2 10*3/uL (1.4-4.0); Lymphocytes % 3.4 % (21.2-54.2); Mean Corpuscular HGB Conc 35.1 GM/DL (32-36); Mean Corpuscular Volume 82.2 FL (87-102); Mean Platelet Volume 10.5 FL (9.6-12.0); Monocytes # 0.4 10*3/uL (0.11-0.8); Monocytes % 8.1 % (1.7-12.7); Neutrophils % 86.4 % (38.7-73.9); Platelet Count 192 T/CUMM (130-400); Red Blood Count 2.36 MC/CUMM (3.8-5.5); White Blood Count 4.7 T/CUMM (4-12)
[2022-05-08] MEDS: NOREPINEPHRINE DRIP 8 MG/250 ML PREMIX IV PRN ×2 (16:00→22:18)
[2022-05-08] MEDS ORDERED: NOREPINEPHRINE 4 MG/4 ML VIAL IV ONE (16:12)
[2022-05-08 16:16] LABS: Albumin 1.2 G/DL (3.4-5.0); Osmolality,Calculated 272.9 MOS/KG (273-304); PT Patient Result 125.3 SECS (10.1-12.1); Partial Thromboplastin Time 62.5 SECS (23.7-32.9); Potassium 3.8 MMOL/L (3.5-5.1); Total Protein 4.4 G/DL (6.4-8.2)
[2022-05-08 16:18] LABS: INR 13.7
[2022-05-08 16:30] LABS: Band Neutrophils 5 % (0-10); Lymphocytes 2 % (20-55); Total Cells Counted 100
[2022-05-08 16:31] LABS: Hypochromia 1+; Target Cells Few
[2022-05-08 16:32] LABS: Microcytosis Slight; Platelet Estimate Adequate
[2022-05-08 16:34] LABS: Bilirubin,Total 21.3 MG/DL (0.20-1.00)
[2022-05-08] MEDS ORDERED: ALBUTEROL 2.5 MG/3 ML NEB RESP TX PRN (18:02)
[2022-05-08] MEDS ORDERED: ONDANSETRON 4 MG/2 ML VIAL IV PRN (18:02)
[2022-05-08] MEDS ORDERED: GLUCAGON 1 MG VIAL IM PRN (18:02)
[2022-05-08] MEDS ORDERED: DEXTROSE 50% 25 GM/50 ML SYRINGE IV PRN (18:11)
[2022-05-08] MEDS ORDERED: FUROSEMIDE 100 MG/10 ML VIAL IV ONE (20:00)
[2022-05-08 21:25] LABS: Bacteria,Urine Occasional /HPF (Few); Bilirubin,Urine Large mg/dL (Negative); Blood, Urine Negative (Negative); Glucose,Urine (UA) Negative (Negative); Ketones,Urine Negative (Negative); Mucus,Urine Occasional /LPF (Occasional); Nitrite,Urine Negative (Negative); Protein,Urine Negative (Negative); Squamous Epithelial Cell,Urine Occasional /HPF (0-10); Urine Appearance Clear (Clear); Urine Color Yellow (Yellow); Urine pH 5.5 (4.5-8.0)
[2022-05-08 21:26] LABS: Urine Urobilinogen 0.2 eU/dL (<2.0)
[2022-05-08] MEDS: INSULIN LISPRO 100 UNIT/ML SUBCUT SCH (22:15)
[2022-05-08] MEDS: LOPERAMIDE 2 MG CAPSULE PO SCH (22:16)
[2022-05-08] MEDS: GABAPENTIN 300 MG CAPSULE PO SCH (22:17)
[2022-05-08] MEDS: ONDANSETRON ODT 4 MG TABLET PO SCH (22:17)
[2022-05-08] MEDS: [UNRECOGNIZED DRUG - REMARK] PO SCH (22:26)
[2022-05-08] MEDS: LIPASE PROTEASE AMYLASE PO SCH (22:26)
[2022-05-09] MEDS: oxyCODONE IR 5 MG TABLET PO SCH ×5 (00:24→17:19)
[2022-05-09] MEDS: NOREPINEPHRINE DRIP 8 MG/250 ML PREMIX IV PRN ×4 (02:01→22:01)
[2022-05-09 05:26] LABS: Basophils % 0.1 % (0.0-0.8); Eosinophils % 0.2 % (0.00-10.9); Hematocrit 30.4 VOL% (42.0-52.0); Hemoglobin 10.6 GM/DL (14.0-18.0); Immature Granulocytes % 2.5 %; Immature Granulocytes Absolute 0.24 #; Lymphocytes # 0.2 10*3/uL (1.4-4.0); Lymphocytes % 2.2 % (21.2-54.2); Mean Corpuscular HGB Conc 34.9 GM/DL (32-36); Mean Corpuscular Volume 81.9 FL (87-102); Mean Platelet Volume 10.5 FL (9.6-12.0); Monocytes # 0.6 10*3/uL (0.11-0.8); Monocytes % 6.6 % (1.7-12.7); Neutrophils % 88.4 % (38.7-73.9); Platelet Count 304 T/CUMM (130-400); Red Blood Count 3.71 MC/CUMM (3.8-5.5); Red Cell Distribution Width 16.9 % (9.3-17.3); White Blood Count 9.7 T/CUMM (4-12)
[2022-05-09 05:41] LABS: INR 4.1; PT Patient Result 41.1 SECS (10.1-12.1)
[2022-05-09 06:00] LABS: Alanine Aminotransferase 22 U/L (16-61); Albumin 1.5 G/DL (3.4-5.0); Alkaline Phosphatase 469 U/L (45-117); Aspartate Amino Transferase 69 U/L (0-37); Blood Urea Nitrogen 52 MG/DL (7-18); Calcium 8.1 MG/DL (8.5-10.1); Carbon Dioxide 18 MMOL/L (21-32); Chloride 100 MMOL/L (98-107); Glucose 260 MG/DL (74-106); Osmolality,Calculated 284.7 MOS/KG (273-304); Potassium 3.5 MMOL/L (3.5-5.1); Sodium 131 MMOL/L (136-145); Total Protein 5.2 G/DL (6.4-8.2)
[2022-05-09 06:09] LABS: Band Neutrophils 3 % (0-10); Lymphocytes 1 % (20-55); Total Cells Counted 100
[2022-05-09 06:10] LABS: Hypochromia Slight; Microcytosis Slight; Platelet Estimate Normal; Target Cells Slight
[2022-05-09] MEDS: CARBIDOPA PO SCH ×3 (06:14→16:45)
[2022-05-09] MEDS: rOPINIRole 1 MG TABLET PO SCH ×3 (06:14→16:45)
[2022-05-09] MEDS: LEVODOPA PO SCH ×3 (06:14→16:45)
[2022-05-09] MEDS ORDERED: FUROSEMIDE 100 MG/10 ML VIAL IV ONE ×2 (07:29→17:00)
[2022-05-09] MEDS ORDERED: SODIUM CHLORIDE 0.9% 1,000 ML IV PRN (07:29)
[2022-05-09] MEDS: INSULIN LISPRO 100 UNIT/ML SUBCUT SCH ×4 (09:53→20:52)
[2022-05-09] MEDS: INSULIN GLARGINE 100 UNIT/ML SUBCUT SCH (09:54)
[2022-05-09] MEDS: AMANTADINE 100 MG CAPSULE PO SCH (09:54)
[2022-05-09] MEDS: LOPERAMIDE 2 MG CAPSULE PO SCH ×3 (09:55→17:18)
[2022-05-09] MEDS: FINASTERIDE 5 MG TABLET PO SCH (09:55)
[2022-05-09] MEDS: PANTOPRAZOLE 40 MG TABLET PO SCH (09:55)
[2022-05-09] MEDS: LORATADINE 10 MG TABLET PO SCH (09:55)
[2022-05-09] MEDS: GABAPENTIN 300 MG CAPSULE PO SCH ×3 (09:55→20:53)
[2022-05-09] MEDS: ONDANSETRON ODT 4 MG TABLET PO SCH ×4 (10:02→20:54)
[2022-05-09] MEDS ORDERED: PHYTONADIONE 10 MG/1 ML AMP SUBCUT ONE (11:16)
[2022-05-09 13:00] LABS: INR 2.8; PT Patient Result 28.4 SECS (10.1-12.1)
[2022-05-09] MEDS: MEROPENEM 500 MG in SODIUM CHLORIDE 0.9% 100 ML IV SCH (14:26)
[2022-05-09] MEDS: LIPASE PROTEASE AMYLASE PO SCH ×3 (14:33→16:45)
[2022-05-09] MEDS: [UNRECOGNIZED DRUG - REMARK] PO SCH ×2 (14:39→20:53)
[2022-05-09] MEDS ORDERED: LOPERAMIDE 2 MG CAPSULE PO PRN (17:35)
[2022-05-09] MEDS: ZINC OXIDE PASTE 113 GM TUBE TOP SCH (20:52)
[2022-05-10] MEDS: MEROPENEM 500 MG in SODIUM CHLORIDE 0.9% 100 ML IV SCH ×2 (00:15→14:53)
[2022-05-10 04:27] LABS: Basophils % 0.1 % (0.0-0.8); Eosinophils # 0.1 10*3/uL (0.0-0.87); Eosinophils % 0.7 % (0.00-10.9); Hematocrit 27.4 VOL% (42.0-52.0); Hemoglobin 9.8 GM/DL (14.0-18.0); Immature Granulocytes % 2.2 %; Immature Granulocytes Absolute 0.17 #; Lymphocytes # 0.4 10*3/uL (1.4-4.0); Lymphocytes % 5.3 % (21.2-54.2); Mean Corpuscular HGB Conc 35.8 GM/DL (32-36); Mean Corpuscular Volume 78.3 FL (87-102); Mean Platelet Volume 10.3 FL (9.6-12.0); Monocytes # 0.8 10*3/uL (0.11-0.8); Neutrophils % 81.7 % (38.7-73.9); Platelet Count 225 T/CUMM (130-400); Red Cell Distribution Width 16.2 % (9.3-17.3); White Blood Count 7.6 T/CUMM (4-12)
[2022-05-10 04:36] LABS: INR 1.9; PT Patient Result 20.3 SECS (10.1-12.1)
[2022-05-10] MEDS: ZINC OXIDE PASTE 113 GM TUBE TOP SCH ×3 (04:37→20:24)
[2022-05-10 04:55] LABS: Eosinophils 1 % (0-10); Hypochromia Slight; Lymphocytes 5 % (20-55); Microcytosis Slight; Nucleated Red Blood Cells 1 /100 WBC (0-5); Platelet Estimate Adequate; Target Cells Slight; Total Cells Counted 100
[2022-05-10 04:56] LABS: Albumin 1.7 G/DL (3.4-5.0); Calcium 7.7 MG/DL (8.5-10.1); Osmolality,Calculated 280.4 MOS/KG (273-304); Potassium 2.7 MMOL/L (3.5-5.1); Total Protein 5.3 G/DL (6.4-8.2)
[2022-05-10 05:08] LABS: Bilirubin,Total 27.5 MG/DL (0.20-1.00)
[2022-05-10] MEDS: NOREPINEPHRINE DRIP 8 MG/250 ML PREMIX IV PRN ×2 (05:26→17:50)
[2022-05-10] MEDS: rOPINIRole 1 MG TABLET PO SCH ×3 (06:02→15:57)
[2022-05-10] MEDS: CARBIDOPA PO SCH ×3 (06:02→15:57)
[2022-05-10] MEDS: LEVODOPA PO SCH ×3 (06:02→15:57)
[2022-05-10] MEDS ORDERED: POTASSIUM CHLORIDE 20 MEQ TABLET PO ONE (07:54)
[2022-05-10] MEDS: POTASSIUM CHLORIDE RIDER 20 MEQ/100 ML PREMIX IV SCH ×2 (08:30→10:24)
[2022-05-10] MEDS: INSULIN LISPRO 100 UNIT/ML SUBCUT SCH ×4 (08:43→21:45)
[2022-05-10] MEDS ORDERED: PHYTONADIONE 10 MG/1 ML AMP SUBCUT ONE (09:00)
[2022-05-10] MEDS ORDERED: ALUMINUM/MAGNES/SIMETH MAX STR 30 ML UDCUP PO ONE (10:04)
[2022-05-10] MEDS: INSULIN GLARGINE 100 UNIT/ML SUBCUT SCH (10:23)
[2022-05-10] MEDS: GABAPENTIN 300 MG CAPSULE PO SCH ×3 (10:23→20:23)
[2022-05-10] MEDS: LIPASE PROTEASE AMYLASE PO SCH ×3 (10:43→15:57)
[2022-05-10] MEDS: ONDANSETRON ODT 4 MG TABLET PO SCH ×4 (10:43→20:23)
[2022-05-10 13:35] LABS: Calcium 7.8 MG/DL (8.5-10.1); Osmolality,Calculated 282.2 MOS/KG (273-304); Potassium 3.1 MMOL/L (3.5-5.1)
[2022-05-10] MEDS ORDERED: fentaNYL 100 MCG/2 ML VIAL ONE (14:24)
[2022-05-10] MEDS: [UNRECOGNIZED DRUG - REMARK] PO SCH ×2 (14:52→20:25)
[2022-05-10] MEDS: FINASTERIDE 5 MG TABLET PO SCH (15:57)
[2022-05-10] MEDS: AMANTADINE 100 MG CAPSULE PO SCH (15:57)
[2022-05-10] MEDS: LORATADINE 10 MG TABLET PO SCH (15:57)
[2022-05-10] MEDS: PANTOPRAZOLE 40 MG TABLET PO SCH (15:57)
[2022-05-10] MEDS ORDERED: ALUMINUM/MAGNES/SIMETH MAX STR 30 ML UDCUP PO PRN (18:04)
[2022-05-10] MEDS ORDERED: MAGNESIUM SULF RIDER 4 GM/100 ML PREMIX IV PRN (21:16)
[2022-05-11] MEDS: MEROPENEM 500 MG in SODIUM CHLORIDE 0.9% 100 ML IV SCH ×2 (00:48→11:41)
[2022-05-11] MEDS: oxyCODONE IR 5 MG TABLET PO PRN (01:25)
[2022-05-11] MEDS ORDERED: METOPROLOL TARTRATE 5 MG/5 ML VIAL IV ONE ×3 (01:34→08:36)
[2022-05-11] MEDS: MAGNESIUM SULF RIDER 2 GM/50 ML PREMIX IV PRN (02:03)
[2022-05-11] MEDS: SIMETHICONE CHEW 125 MG TABLET PO PRN (05:45)
[2022-05-11 05:46] LABS: Basophils % 0.3 % (0.0-0.8); Eosinophils # 0.2 10*3/uL (0.0-0.87); Hematocrit 29.8 VOL% (42.0-52.0); Hemoglobin 10.8 GM/DL (14.0-18.0); Immature Granulocytes % 3.1 %; Immature Granulocytes Absolute 0.23 #; Lymphocytes # 0.3 10*3/uL (1.4-4.0); Lymphocytes % 4.4 % (21.2-54.2); Mean Corpuscular HGB Conc 36.2 GM/DL (32-36); Mean Corpuscular Volume 78.8 FL (87-102); Mean Platelet Volume 10.3 FL (9.6-12.0); Monocytes # 0.6 10*3/uL (0.11-0.8); Monocytes % 7.5 % (1.7-12.7); Neutrophils % 82.7 % (38.7-73.9); Platelet Count 249 T/CUMM (130-400); Red Blood Count 3.78 MC/CUMM (3.8-5.5); Red Cell Distribution Width 16.7 % (9.3-17.3); White Blood Count 7.5 T/CUMM (4-12)
[2022-05-11 05:55] LABS: INR 1.2; PT Patient Result 12.7 SECS (10.1-12.1)
[2022-05-11] MEDS: rOPINIRole 1 MG TABLET PO SCH ×3 (06:14→16:01)
[2022-05-11] MEDS: LEVODOPA PO SCH ×3 (06:15→16:02)
[2022-05-11] MEDS: CARBIDOPA PO SCH ×3 (06:15→16:02)
[2022-05-11 06:17] LABS: Eosinophils 3 % (0-10); Hypochromia Slight; Lymphocytes 5 % (20-55); Microcytosis Slight; Platelet Estimate Adequate; Target Cells Few; Total Cells Counted 100
[2022-05-11 06:22] LABS: Albumin 1.6 G/DL (3.4-5.0); Calcium 8.2 MG/DL (8.5-10.1); Osmolality,Calculated 279.5 MOS/KG (273-304); Total Protein 5.3 G/DL (6.4-8.2)
[2022-05-11 06:25] LABS: Bilirubin,Total 22.8 MG/DL (0.20-1.00)
[2022-05-11] MEDS: INSULIN LISPRO 100 UNIT/ML SUBCUT SCH ×4 (08:02→20:26)
[2022-05-11] MEDS: PANTOPRAZOLE 40 MG TABLET PO SCH (08:04)
[2022-05-11] MEDS: GABAPENTIN 300 MG CAPSULE PO SCH ×3 (08:04→20:25)
[2022-05-11] MEDS: LORATADINE 10 MG TABLET PO SCH (08:04)
[2022-05-11] MEDS: FINASTERIDE 5 MG TABLET PO SCH (08:05)
[2022-05-11] MEDS: AMANTADINE 100 MG CAPSULE PO SCH (08:05)
[2022-05-11] MEDS: ONDANSETRON ODT 4 MG TABLET PO SCH ×4 (08:05→20:25)
[2022-05-11] MEDS: LIPASE PROTEASE AMYLASE PO SCH ×3 (08:07→16:03)
[2022-05-11] MEDS: [UNRECOGNIZED DRUG - REMARK] PO SCH ×2 (08:19→20:25)
[2022-05-11] MEDS: NOREPINEPHRINE DRIP 8 MG/250 ML PREMIX IV PRN ×3 (08:40→23:59)
[2022-05-11] MEDS: DILTIAZEM CD 180 MG CAPSULE PO SCH (08:47)
[2022-05-11] MEDS: INSULIN GLARGINE 100 UNIT/ML SUBCUT SCH (09:14)
[2022-05-11] MEDS: ZINC OXIDE PASTE 113 GM TUBE TOP SCH ×2 (09:14→20:26)
[2022-05-11] MEDS ORDERED: POTASSIUM CHLORIDE 20 MEQ TABLET PO ONE ×2 (09:51→16:00)
[2022-05-11] MEDS ORDERED: DEXTROSE 10% 250 ML BAG IV PRN (11:52)
[2022-05-11] MEDS ORDERED: GLUCAGON 1 MG VIAL IM PRN (11:52)
[2022-05-12] MEDS: MEROPENEM 500 MG in SODIUM CHLORIDE 0.9% 100 ML IV SCH ×2 (00:03→12:07)
[2022-05-12] MEDS: LEVODOPA PO SCH ×3 (06:33→16:30)
[2022-05-12] MEDS: CARBIDOPA PO SCH ×3 (06:33→16:30)
[2022-05-12] MEDS: ONDANSETRON ODT 4 MG TABLET PO SCH ×4 (06:34→20:42)
[2022-05-12] MEDS: rOPINIRole 1 MG TABLET PO SCH ×3 (06:34→16:30)
[2022-05-12] MEDS: LIPASE PROTEASE AMYLASE PO SCH ×3 (06:34→16:30)
[2022-05-12 07:54] LABS: Basophils % 0.3 % (0.0-0.8); Eosinophils # 0.2 10*3/uL (0.0-0.87); Eosinophils % 2.6 % (0.00-10.9); Hematocrit 31.2 VOL% (42.0-52.0); Immature Granulocytes % 2.3 %; Immature Granulocytes Absolute 0.18 #; Lymphocytes # 0.5 10*3/uL (1.4-4.0); Lymphocytes % 5.9 % (21.2-54.2); Mean Corpuscular HGB Conc 35.3 GM/DL (32-36); Mean Corpuscular Volume 81.3 FL (87-102); Mean Platelet Volume 10.1 FL (9.6-12.0); Monocytes # 0.7 10*3/uL (0.11-0.8); Monocytes % 8.8 % (1.7-12.7); Neutrophils % 80.1 % (38.7-73.9); Platelet Count 256 T/CUMM (130-400); Red Blood Count 3.84 MC/CUMM (3.8-5.5); Red Cell Distribution Width 16.9 % (9.3-17.3)
[2022-05-12 08:03] LABS: Calcium 8.2 MG/DL (8.5-10.1); Osmolality,Calculated 276.4 MOS/KG (273-304); Potassium 4.2 MMOL/L (3.5-5.1)
[2022-05-12] MEDS: INSULIN LISPRO 100 UNIT/ML SUBCUT SCH ×4 (09:40→20:42)
[2022-05-12] MEDS: NOREPINEPHRINE DRIP 8 MG/250 ML PREMIX IV PRN (09:43)
[2022-05-12] MEDS: INSULIN GLARGINE 100 UNIT/ML SUBCUT SCH (09:46)
[2022-05-12] MEDS: FINASTERIDE 5 MG TABLET PO SCH (09:48)
[2022-05-12] MEDS: GABAPENTIN 300 MG CAPSULE PO SCH ×3 (09:48→20:41)
[2022-05-12] MEDS: AMANTADINE 100 MG CAPSULE PO SCH (09:48)
[2022-05-12] MEDS: PANTOPRAZOLE 40 MG TABLET PO SCH (09:49)
[2022-05-12] MEDS: DILTIAZEM CD 180 MG CAPSULE PO SCH (09:49)
[2022-05-12] MEDS: LORATADINE 10 MG TABLET PO SCH (09:49)
[2022-05-12 09:54] LABS: Albumin 1.7 G/DL (3.4-5.0); Bilirubin,Direct 21.39 MG/DL (0.0-0.20); Bilirubin,Indirect 3.9 MG/DL (0.0-1.0); Total Protein 5.4 G/DL (6.4-8.2)
[2022-05-12] MEDS: [UNRECOGNIZED DRUG - REMARK] PO SCH ×2 (09:59→20:41)
[2022-05-12 10:04] LABS: Bilirubin,Total 25.3 MG/DL (0.20-1.00)
[2022-05-12] MEDS: ZINC OXIDE PASTE 113 GM TUBE TOP SCH ×2 (10:43→20:41)
[2022-05-13] MEDS: MEROPENEM 500 MG in SODIUM CHLORIDE 0.9% 100 ML IV SCH ×3 (00:36→23:26)
[2022-05-13] MEDS ORDERED: METOPROLOL TARTRATE 5 MG/5 ML VIAL IV ONE ×4 (01:00→23:53)
[2022-05-13 03:42] LABS: Basophils % 0.4 % (0.0-0.8); Eosinophils # 0.2 10*3/uL (0.0-0.87); Eosinophils % 1.8 % (0.00-10.9); Hematocrit 29.2 VOL% (42.0-52.0); Immature Granulocytes % 2.9 %; Immature Granulocytes Absolute 0.29 #; Lymphocytes # 0.5 10*3/uL (1.4-4.0); Lymphocytes % 5.4 % (21.2-54.2); Mean Corpuscular HGB Conc 34.2 GM/DL (32-36); Mean Corpuscular Volume 82.7 FL (87-102); Mean Platelet Volume 10.3 FL (9.6-12.0); Monocytes # 0.7 10*3/uL (0.11-0.8); Monocytes % 7.5 % (1.7-12.7); Platelet Count 260 T/CUMM (130-400); Red Blood Count 3.53 MC/CUMM (3.8-5.5); Red Cell Distribution Width 17.3 % (9.3-17.3); White Blood Count 9.9 T/CUMM (4-12)
[2022-05-13 03:50] LABS: PT Patient Result 11.4 SECS (10.1-12.1)
[2022-05-13 03:58] LABS: Calcium 7.8 MG/DL (8.5-10.1); Osmolality,Calculated 281.8 MOS/KG (273-304); Potassium 4.1 MMOL/L (3.5-5.1)
[2022-05-13 04:06] LABS: Alanine Aminotransferase < 9 U/L (16-61); Albumin 1.6 G/DL (3.4-5.0); Alkaline Phosphatase 286 U/L (45-117); Aspartate Amino Transferase 30 U/L (0-37); Total Protein 5.2 G/DL (6.4-8.2)
[2022-05-13 04:15] LABS: Bilirubin,Indirect 2.9 MG/DL (0.0-1.0)
[2022-05-13] MEDS: LEVODOPA PO SCH ×3 (06:33→15:39)
[2022-05-13] MEDS: ONDANSETRON ODT 4 MG TABLET PO SCH ×4 (06:33→20:05)
[2022-05-13] MEDS: LIPASE PROTEASE AMYLASE PO SCH ×3 (06:33→15:39)
[2022-05-13] MEDS: CARBIDOPA PO SCH ×3 (06:33→15:39)
[2022-05-13] MEDS: rOPINIRole 1 MG TABLET PO SCH ×3 (06:33→15:39)
[2022-05-13] MEDS: INSULIN LISPRO 100 UNIT/ML SUBCUT SCH ×4 (07:56→20:05)
[2022-05-13] MEDS: DILTIAZEM CD 180 MG CAPSULE PO SCH (08:15)
[2022-05-13] MEDS: LORATADINE 10 MG TABLET PO SCH (08:15)
[2022-05-13] MEDS: INSULIN GLARGINE 100 UNIT/ML SUBCUT SCH (08:15)
[2022-05-13] MEDS: PANTOPRAZOLE 40 MG TABLET PO SCH (08:15)
[2022-05-13] MEDS: GABAPENTIN 300 MG CAPSULE PO SCH ×3 (08:15→20:05)
[2022-05-13] MEDS: AMANTADINE 100 MG CAPSULE PO SCH (08:15)
[2022-05-13] MEDS: FINASTERIDE 5 MG TABLET PO SCH (08:15)
[2022-05-13] MEDS: [UNRECOGNIZED DRUG - REMARK] PO SCH ×2 (08:16→20:05)
[2022-05-13] MEDS: ZINC OXIDE PASTE 113 GM TUBE TOP SCH ×2 (08:16→20:05)
[2022-05-13] MEDS ORDERED: DIGOXIN 0.5 MG/2 ML AMP IV ONE (09:11)
[2022-05-13] MEDS: NOREPINEPHRINE DRIP 8 MG/250 ML PREMIX IV PRN (14:00)
[2022-05-13] MEDS: SIMETHICONE CHEW 125 MG TABLET PO PRN (18:42)
[2022-05-14 03:45] LABS: Basophils # 0.1 10*3/uL (0.0-0.2); Basophils % 0.4 % (0.0-0.8); Eosinophils # 0.2 10*3/uL (0.0-0.87); Eosinophils % 1.9 % (0.00-10.9); Hematocrit 31.8 VOL% (42.0-52.0); Immature Granulocytes % 4.4 %; Immature Granulocytes Absolute 0.54 #; Lymphocytes # 0.8 10*3/uL (1.4-4.0); Lymphocytes % 6.3 % (21.2-54.2); Mean Corpuscular HGB Conc 34.6 GM/DL (32-36); Mean Corpuscular Volume 81.5 FL (87-102); Mean Platelet Volume 10.3 FL (9.6-12.0); Monocytes # 0.7 10*3/uL (0.11-0.8); Monocytes % 5.8 % (1.7-12.7); Neutrophils % 81.2 % (38.7-73.9); Platelet Count 309 T/CUMM (130-400); Red Cell Distribution Width 17.5 % (9.3-17.3); White Blood Count 12.2 T/CUMM (4-12)
[2022-05-14 04:01] LABS: Osmolality,Calculated 276.1 MOS/KG (273-304); Potassium 4.1 MMOL/L (3.5-5.1)
[2022-05-14 04:06] LABS: Eosinophils 2 % (0-10); Hypochromia Slight; Lymphocytes 4 % (20-55); Microcytosis Slight; Platelet Estimate Adequate; Total Cells Counted 100
[2022-05-14 04:10] LABS: Albumin 1.8 G/DL (3.4-5.0); Bilirubin,Direct 21.32 MG/DL (0.0-0.20); Total Protein 5.6 G/DL (6.4-8.2)
[2022-05-14 04:13] LABS: Bilirubin,Indirect 3.3 MG/DL (0.0-1.0); Bilirubin,Total 24.6 MG/DL (0.20-1.00)
[2022-05-14] MEDS: rOPINIRole 1 MG TABLET PO SCH ×3 (06:10→15:15)
[2022-05-14] MEDS: LEVODOPA PO SCH ×3 (06:10→15:15)
[2022-05-14] MEDS: CARBIDOPA PO SCH ×3 (06:10→15:15)
[2022-05-14] MEDS: MAGNESIUM SULF RIDER 2 GM/50 ML PREMIX IV PRN (07:06)
[2022-05-14] MEDS: ONDANSETRON ODT 4 MG TABLET PO SCH ×4 (07:07→20:05)
[2022-05-14] MEDS: LIPASE PROTEASE AMYLASE PO SCH ×3 (07:07→17:03)
[2022-05-14] MEDS: INSULIN LISPRO 100 UNIT/ML SUBCUT SCH ×4 (07:17→20:07)
[2022-05-14] MEDS: DILTIAZEM CD 180 MG CAPSULE PO SCH (08:00)
[2022-05-14] MEDS: INSULIN GLARGINE 100 UNIT/ML SUBCUT SCH (08:00)
[2022-05-14] MEDS: FINASTERIDE 5 MG TABLET PO SCH (08:00)
[2022-05-14] MEDS: GABAPENTIN 300 MG CAPSULE PO SCH ×3 (08:01→20:05)
[2022-05-14] MEDS: [UNRECOGNIZED DRUG - REMARK] PO SCH ×2 (08:01→20:05)
[2022-05-14] MEDS: PANTOPRAZOLE 40 MG TABLET PO SCH (08:01)
[2022-05-14] MEDS: AMANTADINE 100 MG CAPSULE PO SCH (08:01)
[2022-05-14] MEDS: ZINC OXIDE PASTE 113 GM TUBE TOP SCH ×2 (08:01→20:05)
[2022-05-14] MEDS: LORATADINE 10 MG TABLET PO SCH (08:01)
[2022-05-14] MEDS: MEROPENEM 500 MG in SODIUM CHLORIDE 0.9% 100 ML IV SCH ×3 (11:20→23:40)
[2022-05-14] MEDS ORDERED: DIGOXIN 0.5 MG/2 ML AMP IV ONE ×2 (12:26→18:00)
[2022-05-14] MEDS: NOREPINEPHRINE DRIP 8 MG/250 ML PREMIX IV PRN (12:30)
[2022-05-14] MEDS ORDERED: METOPROLOL TARTRATE 5 MG/5 ML VIAL IV ONE (13:20)
[2022-05-15 04:21] LABS: Basophils # 0.1 10*3/uL (0.0-0.2); Basophils % 0.5 % (0.0-0.8); Eosinophils # 0.2 10*3/uL (0.0-0.87); Eosinophils % 1.7 % (0.00-10.9); Hematocrit 31.5 VOL% (42.0-52.0); Hemoglobin 10.8 GM/DL (14.0-18.0); Immature Granulocytes % 5.8 %; Immature Granulocytes Absolute 0.59 #; Lymphocytes # 0.7 10*3/uL (1.4-4.0); Lymphocytes % 6.9 % (21.2-54.2); Mean Corpuscular HGB Conc 34.3 GM/DL (32-36); Mean Corpuscular Volume 83.1 FL (87-102); Mean Platelet Volume 10.7 FL (9.6-12.0); Monocytes # 0.7 10*3/uL (0.11-0.8); Monocytes % 7.2 % (1.7-12.7); Neutrophils % 77.9 % (38.7-73.9); Platelet Count 293 T/CUMM (130-400); Red Blood Count 3.79 MC/CUMM (3.8-5.5); Red Cell Distribution Width 17.5 % (9.3-17.3); White Blood Count 10.2 T/CUMM (4-12)
[2022-05-15 04:45] LABS: Band Neutrophils 2 % (0-10); Eosinophils 2 % (0-10); Hypochromia Slight; Lymphocytes 5 % (20-55); Metamyelocytes 1 %; Microcytosis Slight; Osmolality,Calculated 274.1 MOS/KG (273-304); Potassium 4.2 MMOL/L (3.5-5.1); Total Cells Counted 100
[2022-05-15 04:46] LABS: Target Cells Few
[2022-05-15 04:47] LABS: Polychromasia Slight
[2022-05-15 04:48] LABS: Platelet Estimate Normal
[2022-05-15 04:57] LABS: Alanine Aminotransferase < 6 U/L (16-61); Albumin 1.7 G/DL (3.4-5.0); Alkaline Phosphatase 249 U/L (45-117); Aspartate Amino Transferase 36 U/L (0-37); Total Protein 5.5 G/DL (6.4-8.2)
[2022-05-15 04:59] LABS: Bilirubin,Indirect 4.6 MG/DL (0.0-1.0)
[2022-05-15] MEDS: MEROPENEM 500 MG in SODIUM CHLORIDE 0.9% 100 ML IV SCH ×3 (06:03→17:51)
[2022-05-15] MEDS: rOPINIRole 1 MG TABLET PO SCH ×3 (06:36→15:51)
[2022-05-15] MEDS: ONDANSETRON ODT 4 MG TABLET PO SCH ×4 (06:36→20:35)
[2022-05-15] MEDS: CARBIDOPA PO SCH ×3 (06:36→15:51)
[2022-05-15] MEDS: LIPASE PROTEASE AMYLASE PO SCH ×3 (06:36→15:51)
[2022-05-15] MEDS: LEVODOPA PO SCH ×3 (06:36→15:51)
[2022-05-15] MEDS ORDERED: METOPROLOL TARTRATE 5 MG/5 ML VIAL IV ONE ×3 (07:15→09:53)
[2022-05-15] MEDS ORDERED: SODIUM CHLORIDE 0.9% 500 ML IV ONE ×2 (07:29→08:37)
[2022-05-15] MEDS: INSULIN LISPRO 100 UNIT/ML SUBCUT SCH ×4 (07:54→20:34)
[2022-05-15] MEDS ORDERED: MAGNESIUM SULF RIDER 2 GM/50 ML PREMIX IV ONE (09:40)
[2022-05-15] MEDS: GABAPENTIN 300 MG CAPSULE PO SCH ×3 (09:47→20:35)
[2022-05-15] MEDS: AMANTADINE 100 MG CAPSULE PO SCH (09:47)
[2022-05-15] MEDS: DILTIAZEM CD 180 MG CAPSULE PO SCH ×2 (09:49→09:53)
[2022-05-15] MEDS: LORATADINE 10 MG TABLET PO SCH (09:49)
[2022-05-15] MEDS: PANTOPRAZOLE 40 MG TABLET PO SCH (09:49)
[2022-05-15] MEDS: FINASTERIDE 5 MG TABLET PO SCH (09:52)
[2022-05-15] MEDS ORDERED: DIGOXIN 0.5 MG/2 ML AMP IV ONE ×2 (09:53→11:18)
[2022-05-15] MEDS: ZINC OXIDE PASTE 113 GM TUBE TOP SCH ×2 (10:01→20:36)
[2022-05-15] MEDS: INSULIN GLARGINE 100 UNIT/ML SUBCUT SCH (10:02)
[2022-05-15] MEDS: [UNRECOGNIZED DRUG - REMARK] PO SCH ×2 (10:24→20:37)
[2022-05-15 11:13] LABS: INR 1.1; PT Patient Result 11.7 SECS (10.1-12.1)
[2022-05-15] MEDS ORDERED: MIDAZOLAM 2 MG/2 ML VIAL IV ONE (11:16)
[2022-05-15] MEDS ORDERED: fentaNYL 100 MCG/2 ML VIAL IV ONE (11:16)
[2022-05-15] MEDS ORDERED: DIAZEPAM 5 MG TABLET PO ONE (11:16)
[2022-05-15] MEDS ORDERED: SODIUM CHLORIDE 0.45% 1,000 ML IV SCH (11:30)
[2022-05-15] MEDS ORDERED: LACTATED RINGERS 1,000 ML IV ONE (12:01)
[2022-05-15] MEDS ORDERED: ALBUMIN 25% 25 GM/100 ML VIAL IV ONE (12:50)
[2022-05-15] MEDS ORDERED: AMIODARONE INJ 450 MG in DEXTROSE 5% 241 ML IV SCH (13:00)
[2022-05-15] MEDS: NOREPINEPHRINE DRIP 8 MG/250 ML PREMIX IV PRN (13:24)
[2022-05-15] MEDS: ASCORBIC ACID 500 MG TABLET PO SCH (20:35)
[2022-05-15] MEDS: AMIODARONE INJ 450 MG in DEXTROSE 5% 241 ML IV SCH (20:43)
[2022-05-16] MEDS: oxyCODONE IR 5 MG TABLET PO PRN (01:00)
[2022-05-16] MEDS: MEROPENEM 500 MG in SODIUM CHLORIDE 0.9% 100 ML IV SCH ×4 (01:07→17:11)
[2022-05-16] MEDS: SIMETHICONE CHEW 125 MG TABLET PO PRN ×2 (04:10→16:23)
[2022-05-16 04:24] LABS: Basophils # 0.1 10*3/uL (0.0-0.2); Basophils % 0.4 % (0.0-0.8); Eosinophils # 0.1 10*3/uL (0.0-0.87); Eosinophils % 0.7 % (0.00-10.9); Hematocrit 31.8 VOL% (42.0-52.0); Hemoglobin 10.6 GM/DL (14.0-18.0); Immature Granulocytes % 4.2 %; Immature Granulocytes Absolute 0.53 #; Lymphocytes # 0.7 10*3/uL (1.4-4.0); Lymphocytes % 5.8 % (21.2-54.2); Mean Corpuscular HGB Conc 33.3 GM/DL (32-36); Mean Corpuscular Volume 84.6 FL (87-102); Mean Platelet Volume 10.8 FL (9.6-12.0); Monocytes # 0.7 10*3/uL (0.11-0.8); Monocytes % 5.5 % (1.7-12.7); Neutrophils % 83.4 % (38.7-73.9); Platelet Count 330 T/CUMM (130-400); Red Blood Count 3.76 MC/CUMM (3.8-5.5); Red Cell Distribution Width 18.6 % (9.3-17.3); White Blood Count 12.7 T/CUMM (4-12)
[2022-05-16 04:54] LABS: Band Neutrophils 2 % (0-10); Eosinophils 1 % (0-10); Lymphocytes 5 % (20-55); Metamyelocytes 2 %; Myelocytes 1 %; Total Cells Counted 100
[2022-05-16 04:55] LABS: Hypochromia 1+; Microcytosis 1+; Platelet Estimate Normal; Polychromasia Slight; Target Cells Few
[2022-05-16 04:56] LABS: Alanine Aminotransferase < 6 U/L (16-61); Alkaline Phosphatase 232 U/L (45-117); Aspartate Amino Transferase 42 U/L (0-37); Blood Urea Nitrogen 25 MG/DL (7-18); Calcium 8.4 MG/DL (8.5-10.1); Carbon Dioxide 25 MMOL/L (21-32); Chloride 100 MMOL/L (98-107); Glucose 128 MG/DL (74-106); Osmolality,Calculated 269.5 MOS/KG (273-304); Potassium 4.1 MMOL/L (3.5-5.1); Sodium 132 MMOL/L (136-145); Total Protein 5.7 G/DL (6.4-8.2)
[2022-05-16 05:06] LABS: Calcium 8.3 MG/DL (8.5-10.1); Osmolality,Calculated 264.8 MOS/KG (273-304)
[2022-05-16] MEDS: rOPINIRole 1 MG TABLET PO SCH ×3 (06:12→16:01)
[2022-05-16] MEDS: LEVODOPA PO SCH ×3 (06:12→16:02)
[2022-05-16] MEDS: CARBIDOPA PO SCH ×3 (06:12→16:02)
[2022-05-16] MEDS: LIPASE PROTEASE AMYLASE PO SCH ×3 (08:20→16:02)
[2022-05-16] MEDS: INSULIN LISPRO 100 UNIT/ML SUBCUT SCH ×4 (08:20→20:00)
[2022-05-16] MEDS: ONDANSETRON ODT 4 MG TABLET PO SCH ×4 (08:30→20:36)
[2022-05-16] MEDS ORDERED: oxyCODONE IR 5 MG TABLET PO PRN (08:30)
[2022-05-16] MEDS: ASCORBIC ACID 500 MG TABLET PO SCH ×2 (08:31→20:35)
[2022-05-16] MEDS: LORATADINE 10 MG TABLET PO SCH (08:31)
[2022-05-16] MEDS: GABAPENTIN 300 MG CAPSULE PO SCH ×3 (08:31→20:36)
[2022-05-16] MEDS: AMIODARONE 200 MG TABLET PO SCH ×2 (08:31→20:36)
[2022-05-16] MEDS: [UNRECOGNIZED DRUG - REMARK] PO SCH ×2 (08:31→20:39)
[2022-05-16] MEDS: FINASTERIDE 5 MG TABLET PO SCH (08:31)
[2022-05-16] MEDS: AMANTADINE 100 MG CAPSULE PO SCH (08:31)
[2022-05-16] MEDS: PANTOPRAZOLE 40 MG TABLET PO SCH (08:31)
[2022-05-16] MEDS: ZINC OXIDE PASTE 113 GM TUBE TOP SCH ×2 (08:32→20:36)
[2022-05-16] MEDS: INSULIN GLARGINE 100 UNIT/ML SUBCUT SCH (08:40)
[2022-05-16] MEDS: AMIODARONE INJ 450 MG in DEXTROSE 5% 241 ML IV SCH (11:45)
[2022-05-16] MEDS: ASPIRIN EC 81 MG TABLET PO SCH (13:35)
[2022-05-16 14:56] LABS: Osmolality,Calculated 269.4 MOS/KG (273-304); Potassium 4.1 MMOL/L (3.5-5.1)
[2022-05-17] MEDS: MEROPENEM 500 MG in SODIUM CHLORIDE 0.9% 100 ML IV SCH ×2 (00:06→06:05)
[2022-05-17 05:01] LABS: Basophils % 0.3 % (0.0-0.8); Eosinophils # 0.1 10*3/uL (0.0-0.87); Eosinophils % 0.7 % (0.00-10.9); Hemoglobin 9.1 GM/DL (14.0-18.0); Immature Granulocytes % 4.5 %; Lymphocytes # 0.5 10*3/uL (1.4-4.0); Lymphocytes % 7.2 % (21.2-54.2); Mean Corpuscular HGB Conc 32.5 GM/DL (32-36); Mean Corpuscular Volume 85.1 FL (87-102); Mean Platelet Volume 11.1 FL (9.6-12.0); Monocytes # 0.4 10*3/uL (0.11-0.8); Monocytes % 6.6 % (1.7-12.7); Neutrophils % 80.7 % (38.7-73.9); Platelet Count 252 T/CUMM (130-400); Red Blood Count 3.29 MC/CUMM (3.8-5.5); Red Cell Distribution Width 18.6 % (9.3-17.3); White Blood Count 6.7 T/CUMM (4-12)
[2022-05-17 05:22] LABS: Calcium 8.3 MG/DL (8.5-10.1); Osmolality,Calculated 273.2 MOS/KG (273-304); Potassium 3.7 MMOL/L (3.5-5.1)
[2022-05-17 05:28] LABS: Alanine Aminotransferase < 6 U/L (16-61); Albumin 2.1 G/DL (3.4-5.0); Alkaline Phosphatase 193 U/L (45-117); Aspartate Amino Transferase 43 U/L (0-37); Blood Urea Nitrogen 26 MG/DL (7-18); Calcium 8.2 MG/DL (8.5-10.1); Carbon Dioxide 26 MMOL/L (21-32); Chloride 101 MMOL/L (98-107); Glucose 132 MG/DL (74-106); Osmolality,Calculated 276.1 MOS/KG (273-304); Potassium 3.9 MMOL/L (3.5-5.1); Sodium 135 MMOL/L (136-145); Total Protein 4.9 G/DL (6.4-8.2)
[2022-05-17] MEDS: CARBIDOPA PO SCH ×3 (06:05→15:56)
[2022-05-17] MEDS: LEVODOPA PO SCH ×3 (06:05→15:56)
[2022-05-17] MEDS: rOPINIRole 1 MG TABLET PO SCH ×3 (06:05→15:56)
[2022-05-17] MEDS: INSULIN LISPRO 100 UNIT/ML SUBCUT SCH ×4 (07:25→20:40)
[2022-05-17] MEDS: ONDANSETRON ODT 4 MG TABLET PO SCH ×4 (07:27→20:39)
[2022-05-17] MEDS: LIPASE PROTEASE AMYLASE PO SCH ×3 (07:27→15:56)
[2022-05-17] MEDS: GABAPENTIN 300 MG CAPSULE PO SCH ×3 (08:00→20:40)
[2022-05-17] MEDS: PANTOPRAZOLE 40 MG TABLET PO SCH (08:00)
[2022-05-17] MEDS: AMANTADINE 100 MG CAPSULE PO SCH (08:00)
[2022-05-17] MEDS: ASCORBIC ACID 500 MG TABLET PO SCH ×2 (08:00→20:39)
[2022-05-17] MEDS: FINASTERIDE 5 MG TABLET PO SCH (08:00)
[2022-05-17] MEDS: ASPIRIN EC 81 MG TABLET PO SCH (08:00)
[2022-05-17] MEDS: [UNRECOGNIZED DRUG - REMARK] PO SCH ×2 (08:00→20:47)
[2022-05-17] MEDS: AMIODARONE 200 MG TABLET PO SCH (08:00)
[2022-05-17] MEDS: LORATADINE 10 MG TABLET PO SCH (08:00)
[2022-05-17] MEDS: ZINC OXIDE PASTE 113 GM TUBE TOP SCH ×2 (08:54→20:46)
[2022-05-17] MEDS: INSULIN GLARGINE 100 UNIT/ML SUBCUT SCH (09:00)
[2022-05-17] MEDS ORDERED: METOPROLOL TARTRATE 5 MG/5 ML VIAL IV ONE ×2 (09:04)
[2022-05-17] MEDS: cefTRIAXone 2,000 MG in SODIUM CHLORIDE 0.9% 100 ML IV SCH (10:14)
[2022-05-17] MEDS ORDERED: AMIODARONE INJ 450 MG in DEXTROSE 5% 241 ML IV SCH (10:30)
[2022-05-17] MEDS: AMIODARONE INJ 450 MG in DEXTROSE 5% 241 ML IV SCH ×2 (16:30→21:33)
[2022-05-18 04:41] LABS: Basophils % 0.5 % (0.0-0.8); Eosinophils # 0.1 10*3/uL (0.0-0.87); Eosinophils % 1.1 % (0.00-10.9); Hematocrit 26.7 VOL% (42.0-52.0); Hemoglobin 8.7 GM/DL (14.0-18.0); Immature Granulocytes % 4.3 %; Immature Granulocytes Absolute 0.32 #; Lymphocytes # 0.6 10*3/uL (1.4-4.0); Lymphocytes % 7.5 % (21.2-54.2); Mean Corpuscular HGB Conc 32.6 GM/DL (32-36); Mean Corpuscular Volume 85.3 FL (87-102); Mean Platelet Volume 10.4 FL (9.6-12.0); Monocytes # 0.5 10*3/uL (0.11-0.8); Neutrophils % 80.6 % (38.7-73.9); Platelet Count 277 T/CUMM (130-400); Red Blood Count 3.13 MC/CUMM (3.8-5.5); Red Cell Distribution Width 19.4 % (9.3-17.3); White Blood Count 7.5 T/CUMM (4-12)
[2022-05-18 05:10] LABS: Albumin 1.7 G/DL (3.4-5.0); Calcium 8.1 MG/DL (8.5-10.1); Potassium 3.8 MMOL/L (3.5-5.1); Total Protein 5.4 G/DL (6.4-8.2)
[2022-05-18 05:14] LABS: Bilirubin,Total 15.9 MG/DL (0.20-1.00)
[2022-05-18] MEDS: rOPINIRole 1 MG TABLET PO SCH ×3 (06:38→15:30)
[2022-05-18] MEDS: ONDANSETRON ODT 4 MG TABLET PO SCH ×4 (06:38→20:33)
[2022-05-18] MEDS: LEVODOPA PO SCH ×3 (07:36→15:29)
[2022-05-18] MEDS: CARBIDOPA PO SCH ×3 (07:36→15:29)
[2022-05-18] MEDS: LIPASE PROTEASE AMYLASE PO SCH ×3 (07:38→16:28)
[2022-05-18] MEDS ORDERED: MAGNESIUM SULF RIDER 2 GM/50 ML PREMIX IV ONE (07:54)
[2022-05-18] MEDS: INSULIN LISPRO 100 UNIT/ML SUBCUT SCH ×4 (08:11→20:34)
[2022-05-18] MEDS: ASPIRIN EC 81 MG TABLET PO SCH (08:40)
[2022-05-18] MEDS: PANTOPRAZOLE 40 MG TABLET PO SCH (08:40)
[2022-05-18] MEDS: FINASTERIDE 5 MG TABLET PO SCH (08:40)
[2022-05-18] MEDS: ASCORBIC ACID 500 MG TABLET PO SCH ×2 (08:41→20:33)
[2022-05-18] MEDS: GABAPENTIN 300 MG CAPSULE PO SCH ×3 (08:41→20:33)
[2022-05-18] MEDS: LORATADINE 10 MG TABLET PO SCH (08:41)
[2022-05-18] MEDS: AMANTADINE 100 MG CAPSULE PO SCH (08:41)
[2022-05-18] MEDS: ZINC OXIDE PASTE 113 GM TUBE TOP SCH ×2 (08:42→20:34)
[2022-05-18] MEDS: INSULIN GLARGINE 100 UNIT/ML SUBCUT SCH (08:44)
[2022-05-18] MEDS ORDERED: AMIODARONE 200 MG TABLET PO SCH (09:00)
[2022-05-18] MEDS: [UNRECOGNIZED DRUG - REMARK] PO SCH ×2 (09:06→20:34)
[2022-05-18] MEDS: cefTRIAXone 2,000 MG in SODIUM CHLORIDE 0.9% 100 ML IV SCH (09:26)
[2022-05-19 05:41] LABS: PT Patient Result 11.2 SECS (10.1-12.1)
[2022-05-19 05:42] LABS: Basophils % 0.5 % (0.0-0.8); Eosinophils # 0.1 10*3/uL (0.0-0.87); Eosinophils % 1.1 % (0.00-10.9); Hematocrit 25.5 VOL% (42.0-52.0); Hemoglobin 8.3 GM/DL (14.0-18.0); Immature Granulocytes % 3.1 %; Immature Granulocytes Absolute 0.26 #; Lymphocytes # 0.7 10*3/uL (1.4-4.0); Lymphocytes % 8.6 % (21.2-54.2); Mean Corpuscular HGB Conc 32.5 GM/DL (32-36); Mean Corpuscular Volume 86.4 FL (87-102); Mean Platelet Volume 10.6 FL (9.6-12.0); Monocytes # 0.6 10*3/uL (0.11-0.8); Monocytes % 6.5 % (1.7-12.7); Neutrophils % 80.2 % (38.7-73.9); Platelet Count 328 T/CUMM (130-400); Red Blood Count 2.95 MC/CUMM (3.8-5.5); Red Cell Distribution Width 20.1 % (9.3-17.3); White Blood Count 8.4 T/CUMM (4-12)
[2022-05-19 05:59] LABS: Albumin 1.9 G/DL (3.4-5.0); Calcium 8.4 MG/DL (8.5-10.1); Phosphorous 2.4 MG/DL (2.5-4.9); Potassium 3.9 MMOL/L (3.5-5.1); Total Protein 5.5 G/DL (6.4-8.2)
[2022-05-19 06:01] LABS: Bilirubin,Total 12.3 MG/DL (0.20-1.00)
[2022-05-19] MEDS: CARBIDOPA PO SCH ×3 (06:31→16:03)
[2022-05-19] MEDS: LEVODOPA PO SCH ×3 (06:31→16:03)
[2022-05-19] MEDS: ONDANSETRON ODT 4 MG TABLET PO SCH ×4 (06:31→21:09)
[2022-05-19] MEDS: rOPINIRole 1 MG TABLET PO SCH ×3 (06:31→16:03)
[2022-05-19] MEDS: LIPASE PROTEASE AMYLASE PO SCH ×3 (08:25→16:03)
[2022-05-19] MEDS: INSULIN LISPRO 100 UNIT/ML SUBCUT SCH ×4 (08:50→20:35)
[2022-05-19] MEDS: ASCORBIC ACID 500 MG TABLET PO SCH ×2 (08:51→20:36)
[2022-05-19] MEDS: [UNRECOGNIZED DRUG - REMARK] PO SCH ×2 (08:51→22:22)
[2022-05-19] MEDS: GABAPENTIN 300 MG CAPSULE PO SCH ×3 (08:51→20:35)
[2022-05-19] MEDS: ASPIRIN EC 81 MG TABLET PO SCH (08:51)
[2022-05-19] MEDS: FINASTERIDE 5 MG TABLET PO SCH (08:51)
[2022-05-19] MEDS: LORATADINE 10 MG TABLET PO SCH (08:51)
[2022-05-19] MEDS: PANTOPRAZOLE 40 MG TABLET PO SCH (08:51)
[2022-05-19] MEDS: AMANTADINE 100 MG CAPSULE PO SCH (08:51)
[2022-05-19] MEDS: AMIODARONE 200 MG TABLET PO SCH (08:51)
[2022-05-19] MEDS: INSULIN GLARGINE 100 UNIT/ML SUBCUT SCH (08:52)
[2022-05-19] MEDS: ZINC OXIDE PASTE 113 GM TUBE TOP SCH ×2 (08:52→20:35)
[2022-05-19] MEDS: FERROUS SULFATE 325 MG TABLET PO SCH ×2 (09:51→20:35)
[2022-05-19] MEDS: cefTRIAXone 2,000 MG in SODIUM CHLORIDE 0.9% 100 ML IV SCH (09:51)
[2022-05-20 05:46] LABS: Basophils % 0.5 % (0.0-0.8); Eosinophils # 0.1 10*3/uL (0.0-0.87); Eosinophils % 1.3 % (0.00-10.9); Hematocrit 24.4 VOL% (42.0-52.0); Immature Granulocytes % 2.9 %; Immature Granulocytes Absolute 0.22 #; Lymphocytes # 0.9 10*3/uL (1.4-4.0); Mean Corpuscular HGB Conc 32.8 GM/DL (32-36); Mean Corpuscular Volume 88.1 FL (87-102); Mean Platelet Volume 11.1 FL (9.6-12.0); Monocytes # 0.6 10*3/uL (0.11-0.8); Monocytes % 7.5 % (1.7-12.7); Neutrophils % 75.8 % (38.7-73.9); Platelet Count 315 T/CUMM (130-400); Red Blood Count 2.77 MC/CUMM (3.8-5.5); Red Cell Distribution Width 20.5 % (9.3-17.3); White Blood Count 7.6 T/CUMM (4-12)
[2022-05-20 05:52] LABS: Calcium 8.3 MG/DL (8.5-10.1); Potassium 4.2 MMOL/L (3.5-5.1)
[2022-05-20 06:11] LABS: Albumin 1.9 G/DL (3.4-5.0); Calcium 8.2 MG/DL (8.5-10.1); Potassium 4.2 MMOL/L (3.5-5.1); Total Protein 5.6 G/DL (6.4-8.2)
[2022-05-20] MEDS: LEVODOPA PO SCH ×3 (06:20→16:04)
[2022-05-20] MEDS: rOPINIRole 1 MG TABLET PO SCH ×3 (06:20→16:04)
[2022-05-20] MEDS: CARBIDOPA PO SCH ×3 (06:20→16:04)
[2022-05-20] MEDS: INSULIN LISPRO 100 UNIT/ML SUBCUT SCH ×4 (06:43→20:05)
[2022-05-20] MEDS: LIPASE PROTEASE AMYLASE PO SCH ×3 (08:02→16:04)
[2022-05-20] MEDS: ONDANSETRON ODT 4 MG TABLET PO SCH ×4 (08:03→20:05)
[2022-05-20] MEDS: LORATADINE 10 MG TABLET PO SCH (08:59)
[2022-05-20] MEDS: AMIODARONE 200 MG TABLET PO SCH (09:00)
[2022-05-20] MEDS: FERROUS SULFATE 325 MG TABLET PO SCH ×2 (09:00→20:05)
[2022-05-20] MEDS: GABAPENTIN 300 MG CAPSULE PO SCH ×3 (09:00→20:05)
[2022-05-20] MEDS: ZINC OXIDE PASTE 113 GM TUBE TOP SCH ×2 (09:00→20:05)
[2022-05-20] MEDS: PANTOPRAZOLE 40 MG TABLET PO SCH (09:01)
[2022-05-20] MEDS: FINASTERIDE 5 MG TABLET PO SCH (09:01)
[2022-05-20] MEDS: AMANTADINE 100 MG CAPSULE PO SCH (09:01)
[2022-05-20] MEDS: ASCORBIC ACID 500 MG TABLET PO SCH ×2 (09:01→20:05)
[2022-05-20] MEDS: cefTRIAXone 2,000 MG in SODIUM CHLORIDE 0.9% 100 ML IV SCH (09:03)
[2022-05-20] MEDS: INSULIN GLARGINE 100 UNIT/ML SUBCUT SCH (09:03)
[2022-05-20] MEDS: [UNRECOGNIZED DRUG - REMARK] PO SCH ×2 (09:16→20:05)
[2022-05-21 04:58] LABS: Basophils # 0.1 10*3/uL (0.0-0.2); Basophils % 0.7 % (0.0-0.8); Eosinophils # 0.1 10*3/uL (0.0-0.87); Eosinophils % 0.7 % (0.00-10.9); Hematocrit 29.8 VOL% (42.0-52.0); Hemoglobin 9.3 GM/DL (14.0-18.0); Immature Granulocytes % 1.9 %; Immature Granulocytes Absolute 0.17 #; Lymphocytes # 1.1 10*3/uL (1.4-4.0); Lymphocytes % 12.7 % (21.2-54.2); Mean Corpuscular HGB Conc 31.2 GM/DL (32-36); Mean Corpuscular Volume 91.7 FL (87-102); Mean Platelet Volume 10.4 FL (9.6-12.0); Monocytes # 0.6 10*3/uL (0.11-0.8); Monocytes % 7.1 % (1.7-12.7); Neutrophils % 76.9 % (38.7-73.9); Platelet Count 363 T/CUMM (130-400); Red Blood Count 3.25 MC/CUMM (3.8-5.5); Red Cell Distribution Width 20.6 % (9.3-17.3); White Blood Count 8.9 T/CUMM (4-12)
[2022-05-21 05:09] LABS: Osmolality,Calculated 270.1 MOS/KG (273-304)
[2022-05-21 05:18] LABS: Albumin 2.1 G/DL (3.4-5.0); Bilirubin,Direct 8.61 MG/DL (0.0-0.20); Bilirubin,Indirect 1.5 MG/DL (0.0-1.0); Bilirubin,Total 10.1 MG/DL (0.20-1.00); Total Protein 6.6 G/DL (6.4-8.2)
[2022-05-21] MEDS: LEVODOPA PO SCH ×3 (06:27→16:02)
[2022-05-21] MEDS: CARBIDOPA PO SCH ×3 (06:27→16:02)
[2022-05-21] MEDS: rOPINIRole 1 MG TABLET PO SCH ×3 (06:27→16:01)
[2022-05-21] MEDS: INSULIN LISPRO 100 UNIT/ML SUBCUT SCH ×4 (07:29→21:56)
[2022-05-21] MEDS: ONDANSETRON ODT 4 MG TABLET PO SCH ×4 (08:35→22:03)
[2022-05-21] MEDS: SIMETHICONE CHEW 125 MG TABLET PO PRN (08:37)
[2022-05-21] MEDS: FERROUS SULFATE 325 MG TABLET PO SCH ×2 (08:37→21:56)
[2022-05-21] MEDS: GABAPENTIN 300 MG CAPSULE PO SCH ×3 (08:37→21:55)
[2022-05-21] MEDS: PANTOPRAZOLE 40 MG TABLET PO SCH (08:37)
[2022-05-21] MEDS: ZINC OXIDE PASTE 113 GM TUBE TOP SCH ×2 (08:38→21:56)
[2022-05-21] MEDS: ASCORBIC ACID 500 MG TABLET PO SCH ×2 (08:39→21:56)
[2022-05-21] MEDS: LORATADINE 10 MG TABLET PO SCH (08:39)
[2022-05-21] MEDS: AMANTADINE 100 MG CAPSULE PO SCH (08:39)
[2022-05-21] MEDS: AMIODARONE 200 MG TABLET PO SCH (08:39)
[2022-05-21] MEDS: FINASTERIDE 5 MG TABLET PO SCH (08:40)
[2022-05-21] MEDS: LIPASE PROTEASE AMYLASE PO SCH ×3 (08:41→15:55)
[2022-05-21] MEDS: INSULIN GLARGINE 100 UNIT/ML SUBCUT SCH (08:45)
[2022-05-21] MEDS: cefTRIAXone 2,000 MG in SODIUM CHLORIDE 0.9% 100 ML IV SCH (10:42)
[2022-05-21] MEDS: [UNRECOGNIZED DRUG - REMARK] PO SCH ×2 (10:59→21:55)
[2022-05-22 05:21] LABS: Calcium 8.6 MG/DL (8.5-10.1); Osmolality,Calculated 271.1 MOS/KG (273-304); Potassium 3.8 MMOL/L (3.5-5.1)
[2022-05-22 05:23] LABS: Albumin 1.9 G/DL (3.4-5.0); Bilirubin,Direct 7.35 MG/DL (0.0-0.20); Bilirubin,Indirect 1.3 MG/DL (0.0-1.0); Bilirubin,Total 8.6 MG/DL (0.20-1.00); Total Protein 5.6 G/DL (6.4-8.2)
[2022-05-22 05:38] LABS: Basophils # 0.1 10*3/uL (0.0-0.2); Basophils % 0.8 % (0.0-0.8); Eosinophils # 0.1 10*3/uL (0.0-0.87); Eosinophils % 1.2 % (0.00-10.9); Hematocrit 23.8 VOL% (42.0-52.0); Lymphocytes # 0.8 10*3/uL (1.4-4.0); Mean Corpuscular HGB Conc 32.4 GM/DL (32-36); Mean Corpuscular Volume 91.9 FL (87-102); Mean Platelet Volume 10.3 FL (9.6-12.0); Monocytes # 0.5 10*3/uL (0.11-0.8); Monocytes % 9.1 % (1.7-12.7); Red Blood Count 2.59 MC/CUMM (3.8-5.5); Red Cell Distribution Width 20.7 % (9.3-17.3)
[2022-05-22 05:42] LABS: Hemoglobin 7.7 GM/DL (14.0-18.0); Platelet Count 241 T/CUMM (130-400); White Blood Count 5.9 T/CUMM (4-12)
[2022-05-22] MEDS: rOPINIRole 1 MG TABLET PO SCH ×3 (06:30→16:17)
[2022-05-22] MEDS: CARBIDOPA PO SCH ×3 (06:31→16:18)
[2022-05-22] MEDS: LEVODOPA PO SCH ×3 (06:31→16:18)
[2022-05-22] MEDS: INSULIN LISPRO 100 UNIT/ML SUBCUT SCH ×4 (08:19→20:36)
[2022-05-22] MEDS: INSULIN GLARGINE 100 UNIT/ML SUBCUT SCH (10:07)
[2022-05-22] MEDS: ASCORBIC ACID 500 MG TABLET PO SCH ×2 (10:08→21:33)
[2022-05-22] MEDS: AMIODARONE 200 MG TABLET PO SCH (10:08)
[2022-05-22] MEDS: PANTOPRAZOLE 40 MG TABLET PO SCH (10:08)
[2022-05-22] MEDS: FERROUS SULFATE 325 MG TABLET PO SCH ×2 (10:08→21:33)
[2022-05-22] MEDS: GABAPENTIN 300 MG CAPSULE PO SCH ×3 (10:08→21:33)
[2022-05-22] MEDS: FINASTERIDE 5 MG TABLET PO SCH (10:08)
[2022-05-22] MEDS: ONDANSETRON ODT 4 MG TABLET PO SCH ×4 (10:09→21:33)
[2022-05-22] MEDS: LORATADINE 10 MG TABLET PO SCH (10:09)
[2022-05-22] MEDS: AMANTADINE 100 MG CAPSULE PO SCH (10:09)
[2022-05-22] MEDS: ZINC OXIDE PASTE 113 GM TUBE TOP SCH ×2 (10:43→21:40)
[2022-05-22] MEDS: LIPASE PROTEASE AMYLASE PO SCH ×3 (10:43→16:18)
[2022-05-22] MEDS: cefTRIAXone 2,000 MG in SODIUM CHLORIDE 0.9% 100 ML IV SCH (10:44)
[2022-05-22] MEDS: [UNRECOGNIZED DRUG - REMARK] PO SCH ×2 (10:48→21:39)
[2022-05-23 04:40] LABS: Basophils % 0.6 % (0.0-0.8); Eosinophils # 0.1 10*3/uL (0.0-0.87); Eosinophils % 1.3 % (0.00-10.9); Hematocrit 24.4 VOL% (42.0-52.0); Hemoglobin 7.5 GM/DL (14.0-18.0); Lymphocytes # 0.9 10*3/uL (1.4-4.0); Lymphocytes % 17.9 % (21.2-54.2); Mean Corpuscular HGB Conc 30.7 GM/DL (32-36); Mean Corpuscular Volume 93.1 FL (87-102); Mean Platelet Volume 10.5 FL (9.6-12.0); Monocytes # 0.6 10*3/uL (0.11-0.8); Monocytes % 11.8 % (1.7-12.7); Neutrophils % 67.1 % (38.7-73.9); Platelet Count 220 T/CUMM (130-400); Red Blood Count 2.62 MC/CUMM (3.8-5.5); Red Cell Distribution Width 20.7 % (9.3-17.3); White Blood Count 5.3 T/CUMM (4-12)
[2022-05-23 05:06] LABS: Albumin 2.1 G/DL (3.4-5.0); Bilirubin,Direct 7.03 MG/DL (0.0-0.20); Total Protein 5.8 G/DL (6.4-8.2)
[2022-05-23] MEDS: rOPINIRole 1 MG TABLET PO SCH ×3 (06:49→16:01)
[2022-05-23] MEDS: LEVODOPA PO SCH ×3 (06:49→16:01)
[2022-05-23] MEDS: CARBIDOPA PO SCH ×3 (06:49→16:01)
[2022-05-23] MEDS: INSULIN LISPRO 100 UNIT/ML SUBCUT SCH ×4 (09:15→20:27)
[2022-05-23] MEDS: ZINC OXIDE PASTE 113 GM TUBE TOP SCH ×2 (09:15→20:48)
[2022-05-23] MEDS: LIPASE PROTEASE AMYLASE PO SCH ×3 (09:38→16:18)
[2022-05-23] MEDS: AMANTADINE 100 MG CAPSULE PO SCH (09:39)
[2022-05-23] MEDS: PANTOPRAZOLE 40 MG TABLET PO SCH (09:47)
[2022-05-23] MEDS: FINASTERIDE 5 MG TABLET PO SCH (09:47)
[2022-05-23] MEDS: GABAPENTIN 300 MG CAPSULE PO SCH ×3 (09:47→20:47)
[2022-05-23] MEDS: LORATADINE 10 MG TABLET PO SCH (09:47)
[2022-05-23] MEDS: ASCORBIC ACID 500 MG TABLET PO SCH ×2 (09:47→20:47)
[2022-05-23] MEDS: INSULIN GLARGINE 100 UNIT/ML SUBCUT SCH (09:48)
[2022-05-23] MEDS: AMIODARONE 200 MG TABLET PO SCH (09:48)
[2022-05-23] MEDS: ONDANSETRON ODT 4 MG TABLET PO SCH ×4 (09:48→20:48)
[2022-05-23] MEDS: FERROUS SULFATE 325 MG TABLET PO SCH ×2 (09:48→20:48)
[2022-05-23] MEDS: cefTRIAXone 2,000 MG in SODIUM CHLORIDE 0.9% 100 ML IV SCH (09:49)
[2022-05-23] MEDS: [UNRECOGNIZED DRUG - REMARK] PO SCH ×2 (14:02→20:47)
[2022-05-24 05:20] LABS: Basophils % 0.8 % (0.0-0.8); Eosinophils # 0.1 10*3/uL (0.0-0.87); Eosinophils % 1.6 % (0.00-10.9); Hematocrit 24.8 VOL% (42.0-52.0); Hemoglobin 7.8 GM/DL (14.0-18.0); Immature Granulocytes % 1.2 %; Immature Granulocytes Absolute 0.06 #; Lymphocytes # 1.2 10*3/uL (1.4-4.0); Lymphocytes % 24.9 % (21.2-54.2); Mean Corpuscular HGB Conc 31.5 GM/DL (32-36); Mean Corpuscular Volume 93.9 FL (87-102); Mean Platelet Volume 10.6 FL (9.6-12.0); Monocytes # 0.6 10*3/uL (0.11-0.8); Monocytes % 12.9 % (1.7-12.7); Neutrophils % 58.6 % (38.7-73.9); Platelet Count 196 T/CUMM (130-400); Red Blood Count 2.64 MC/CUMM (3.8-5.5); Red Cell Distribution Width 20.9 % (9.3-17.3)
[2022-05-24 05:49] LABS: Albumin 2.3 G/DL (3.4-5.0); Bilirubin,Direct 6.51 MG/DL (0.0-0.20); Bilirubin,Indirect 0.8 MG/DL (0.0-1.0); Bilirubin,Total 7.3 MG/DL (0.20-1.00)
[2022-05-24] MEDS: CARBIDOPA PO SCH ×2 (06:25→12:49)
[2022-05-24] MEDS: LEVODOPA PO SCH ×2 (06:25→12:49)
[2022-05-24] MEDS: rOPINIRole 1 MG TABLET PO SCH ×2 (06:26→12:48)
[2022-05-24] MEDS: INSULIN LISPRO 100 UNIT/ML SUBCUT SCH ×2 (07:35→12:30)
[2022-05-24] MEDS: INSULIN GLARGINE 100 UNIT/ML SUBCUT SCH (08:35)
[2022-05-24] MEDS: FERROUS SULFATE 325 MG TABLET PO SCH (08:36)
[2022-05-24] MEDS: GABAPENTIN 300 MG CAPSULE PO SCH (08:36)
[2022-05-24] MEDS: LORATADINE 10 MG TABLET PO SCH (08:36)
[2022-05-24] MEDS: AMANTADINE 100 MG CAPSULE PO SCH (08:36)
[2022-05-24] MEDS: ONDANSETRON ODT 4 MG TABLET PO SCH ×2 (08:36→12:47)
[2022-05-24] MEDS: ASCORBIC ACID 500 MG TABLET PO SCH (08:37)
[2022-05-24] MEDS: AMIODARONE 200 MG TABLET PO SCH (08:37)
[2022-05-24] MEDS: PANTOPRAZOLE 40 MG TABLET PO SCH (08:37)
[2022-05-24] MEDS: [UNRECOGNIZED DRUG - REMARK] PO SCH (08:39)
[2022-05-24] MEDS: ZINC OXIDE PASTE 113 GM TUBE TOP SCH (08:40)
[2022-05-24] MEDS: LIPASE PROTEASE AMYLASE PO SCH ×2 (08:40→12:48)
[2022-05-24] MEDS: FINASTERIDE 5 MG TABLET PO SCH (08:50)
[2022-05-24] MEDS: cefTRIAXone 2,000 MG in SODIUM CHLORIDE 0.9% 100 ML IV SCH (09:05)
[2022-05-24 12:37] VITALS: BP 98/60
== END 2022-05-24 14:45 | disposition home health service (06) | DRG 408 ==
LOC: N.ED 14:40 → SUATTDRO 16:22 → N.EDINP 16:22 → N.CC 19:17 → N.TELES 05-19 16:56
PROVIDERS: ADMIT Internal Medicine; ATTEND Internal Medicine Geriatric Medicine

== ENCOUNTER 2022-05-30 21:49 | Observation (INO) ==
[2022-05-30 22:40] LABS: Basophils % 0.4 % (0.0-0.8); Eosinophils # 0.1 10*3/uL (0.0-0.87); Hematocrit 26.9 VOL% (42.0-52.0); Hemoglobin 8.2 GM/DL (14.0-18.0); Immature Granulocytes % 0.8 %; Immature Granulocytes Absolute 0.04 #; Lymphocytes % 20.6 % (21.2-54.2); Mean Corpuscular HGB Conc 30.5 GM/DL (32-36); Mean Corpuscular Volume 99.3 FL (87-102); Mean Platelet Volume 10.4 FL (9.6-12.0); Monocytes # 0.6 10*3/uL (0.11-0.8); Monocytes % 12.6 % (1.7-12.7); Neutrophils % 63.6 % (38.7-73.9); Platelet Count 163 T/CUMM (130-400); Red Blood Count 2.71 MC/CUMM (3.8-5.5); Red Cell Distribution Width 20.6 % (9.3-17.3)
[2022-05-30 22:57] LABS: INR 1.1; PT Patient Result 12.4 SECS (10.1-12.1); Partial Thromboplastin Time 29.7 SECS (23.7-32.9)
[2022-05-30 23:01] LABS: Alanine Aminotransferase < 9 U/L (16-61); Albumin 2.5 G/DL (3.4-5.0); Alkaline Phosphatase 479 U/L (45-117); Aspartate Amino Transferase 32 U/L (0-37); Blood Urea Nitrogen 16 MG/DL (7-18); Calcium 8.5 MG/DL (8.5-10.1); Carbon Dioxide 23 MMOL/L (21-32); Chloride 105 MMOL/L (98-107); Glucose 116 MG/DL (74-106); Osmolality,Calculated 274.8 MOS/KG (273-304); Potassium 3.9 MMOL/L (3.5-5.1); Sodium 137 MMOL/L (136-145); Total Protein 5.8 G/DL (6.4-8.2)
[2022-05-30] MEDS ORDERED: SIMETHICONE CHEW 125 MG TABLET PO PRN (23:31)
[2022-05-30] MEDS ORDERED: ONDANSETRON 4 MG/2 ML VIAL IV PRN (23:31)
[2022-05-30] MEDS ORDERED: ACETAMINOPHEN 325 MG TABLET PO PRN (23:31)
[2022-05-30] MEDS ORDERED: GLUCAGON 1 MG VIAL IM PRN (23:38)
[2022-05-30] MEDS ORDERED: DEXTROSE 10% 250 ML BAG IV PRN (23:38)
[2022-05-31] MEDS: LIDOCAINE 5% PATCH TRANSDERM SCH ×2 (01:52→11:03)
[2022-05-31 04:06] LABS: Basophils % 0.5 % (0.0-0.8); Eosinophils # 0.1 10*3/uL (0.0-0.87); Hematocrit 21.1 VOL% (42.0-52.0); Immature Granulocytes Absolute 0.04 #; Lymphocytes # 1.1 10*3/uL (1.4-4.0); Lymphocytes % 27.9 % (21.2-54.2); Mean Corpuscular HGB Conc 30.3 GM/DL (32-36); Mean Corpuscular Volume 98.6 FL (87-102); Mean Platelet Volume 9.7 FL (9.6-12.0); Monocytes # 0.5 10*3/uL (0.11-0.8); Monocytes % 11.4 % (1.7-12.7); Neutrophils % 56.2 % (38.7-73.9); Platelet Count 151 T/CUMM (130-400); Red Blood Count 2.14 MC/CUMM (3.8-5.5); Red Cell Distribution Width 20.5 % (9.3-17.3); White Blood Count 4.1 T/CUMM (4-12)
[2022-05-31 04:09] LABS: Hemoglobin 6.4 GM/DL (14.0-18.0)
[2022-05-31] MEDS ORDERED: SODIUM CHLORIDE 0.9% 1,000 ML IV PRN (04:21)
[2022-05-31 04:29] LABS: Calcium 8.1 MG/DL (8.5-10.1); Osmolality,Calculated 278.5 MOS/KG (273-304); Thyroid Stimulating Hormone 1.84 uIU/ml (0.358-3.74)
[2022-05-31] MEDS: INSULIN LISPRO 100 UNIT/ML SUBCUT SCH ×4 (08:35→22:13)
[2022-05-31] MEDS ORDERED: AMIODARONE 200 MG TABLET PO SCH (09:00)
[2022-05-31] MEDS ORDERED: ENOXAPARIN 40 MG/0.4 ML SYRINGE SUBCUT SCH (09:00)
[2022-05-31] MEDS ORDERED: ASPIRIN EC 81 MG TABLET PO SCH (09:00)
[2022-05-31] MEDS: MULTIVITAMIN (CENTRUM) TABLET PO SCH (10:13)
[2022-05-31] MEDS: GABAPENTIN 300 MG CAPSULE PO SCH ×3 (10:14→21:40)
[2022-05-31] MEDS: rOPINIRole 1 MG TABLET PO SCH ×3 (10:14→16:44)
[2022-05-31] MEDS: ONDANSETRON ODT 4 MG TABLET PO SCH ×5 (10:15→21:41)
[2022-05-31] MEDS: BACLOFEN 10 MG TABLET PO SCH ×3 (10:16→21:41)
[2022-05-31] MEDS: PANTOPRAZOLE 40 MG TABLET PO SCH (10:16)
[2022-05-31] MEDS: TAMSULOSIN 0.4 MG CAPSULE PO SCH ×2 (10:16→21:40)
[2022-05-31] MEDS: LORATADINE 10 MG TABLET PO SCH (10:17)
[2022-05-31] MEDS: AMANTADINE 100 MG CAPSULE PO SCH (10:17)
[2022-05-31] MEDS: FINASTERIDE 5 MG TABLET PO SCH (10:18)
[2022-05-31] MEDS: DIPHENOXYLATE/ATROPINE 2.5-0.025 MG TABLET PO SCH ×4 (10:29→22:13)
[2022-05-31] MEDS: [UNRECOGNIZED DRUG - REMARK] PO SCH ×2 (11:12→22:14)
[2022-05-31] MEDS ORDERED: CHOLESTYRAMINE 4 GM PACK PO PRN (11:59)
[2022-05-31] MEDS ORDERED: LOPERAMIDE 2 MG CAPSULE PO PRN (13:00)
[2022-05-31] MEDS ORDERED: HEPARIN LOCK FLUSH 500 UNIT/5 ML SYRINGE IV ONE (14:20)
[2022-05-31 16:33] LABS: Hematocrit 28.3 VOL% (42.0-52.0); Hemoglobin 9.1 GM/DL (14.0-18.0)
[2022-05-31] MEDS: [UNRECOGNIZED DRUG - OTHER] PO SCH (16:46)
[2022-05-31] MEDS: LEVODOPA PO SCH (16:46)
[2022-05-31] MEDS: CARBIDOPA PO SCH (16:46)
[2022-05-31] MEDS: oxyCODONE IR 5 MG TABLET PO PRN ×2 (16:52→23:09)
[2022-05-31] MEDS: AMIODARONE 200 MG TABLET PO SCH (21:41)
[2022-06-01] MEDS: oxyCODONE IR 5 MG TABLET PO SCH ×3 (00:53→12:59)
[2022-06-01 06:45] LABS: Basophils % 0.4 % (0.0-0.8); Eosinophils # 0.1 10*3/uL (0.0-0.87); Hematocrit 27.7 VOL% (42.0-52.0); Hemoglobin 8.9 GM/DL (14.0-18.0); Immature Granulocytes % 0.6 %; Immature Granulocytes Absolute 0.03 #; Lymphocytes # 1.2 10*3/uL (1.4-4.0); Lymphocytes % 23.6 % (21.2-54.2); Mean Corpuscular HGB Conc 32.1 GM/DL (32-36); Mean Corpuscular Volume 93.9 FL (87-102); Mean Platelet Volume 10.6 FL (9.6-12.0); Monocytes # 0.5 10*3/uL (0.11-0.8); Monocytes % 10.4 % (1.7-12.7); Platelet Count 163 T/CUMM (130-400); Red Blood Count 2.95 MC/CUMM (3.8-5.5); Red Cell Distribution Width 19.9 % (9.3-17.3); White Blood Count 4.9 T/CUMM (4-12)
[2022-06-01] MEDS: rOPINIRole 1 MG TABLET PO SCH ×3 (06:59→15:28)
[2022-06-01 07:03] LABS: Calcium 8.2 MG/DL (8.5-10.1); Osmolality,Calculated 279.3 MOS/KG (273-304); Potassium 3.6 MMOL/L (3.5-5.1)
[2022-06-01] MEDS: INSULIN LISPRO 100 UNIT/ML SUBCUT SCH ×3 (07:03→15:32)
[2022-06-01] MEDS: LEVODOPA PO SCH ×3 (07:04→15:30)
[2022-06-01] MEDS: [UNRECOGNIZED DRUG - OTHER] PO SCH ×3 (07:04→15:30)
[2022-06-01] MEDS: CARBIDOPA PO SCH ×3 (07:04→15:30)
[2022-06-01] MEDS ORDERED: MIDAZOLAM 2 MG/2 ML VIAL IV ONE (09:00)
[2022-06-01] MEDS ORDERED: SODIUM CHLORIDE 0.45% 1,000 ML IV SCH (09:00)
[2022-06-01] MEDS ORDERED: DIAZEPAM 5 MG TABLET PO ONE (09:00)
[2022-06-01] MEDS ORDERED: fentaNYL 100 MCG/2 ML VIAL IV ONE (09:00)
[2022-06-01] MEDS: DIPHENOXYLATE/ATROPINE 2.5-0.025 MG TABLET PO SCH ×3 (09:36→16:23)
[2022-06-01] MEDS: AMIODARONE 200 MG TABLET PO SCH (09:47)
[2022-06-01] MEDS: GABAPENTIN 300 MG CAPSULE PO SCH ×2 (09:49→15:28)
[2022-06-01] MEDS: MULTIVITAMIN (CENTRUM) TABLET PO SCH (09:50)
[2022-06-01] MEDS: LORATADINE 10 MG TABLET PO SCH (09:50)
[2022-06-01] MEDS: FINASTERIDE 5 MG TABLET PO SCH (09:50)
[2022-06-01] MEDS: TAMSULOSIN 0.4 MG CAPSULE PO SCH (09:50)
[2022-06-01] MEDS: PANTOPRAZOLE 40 MG TABLET PO SCH (09:50)
[2022-06-01] MEDS: BACLOFEN 10 MG TABLET PO SCH ×2 (09:50→15:28)
[2022-06-01] MEDS: AMANTADINE 100 MG CAPSULE PO SCH (09:50)
[2022-06-01] MEDS: ONDANSETRON ODT 4 MG TABLET PO SCH ×2 (09:51→12:56)
[2022-06-01] MEDS: LIDOCAINE 5% PATCH TRANSDERM SCH (09:58)
[2022-06-01] MEDS ORDERED: LEVOFLOXACIN INJ 500 MG/100 ML PREMIX IV ONE (14:30)
[2022-06-01 14:59] VITALS: BP 105/75
[2022-06-02] MEDS ORDERED: ENOXAPARIN 40 MG/0.4 ML SYRINGE SUBCUT SCH (09:00)
== END 2022-06-01 17:35 | disposition home health service (06) ==
LOC: N.ED 21:49 → N.EDINP 21:49 → N.2W 05-31 11:50
PROVIDERS: ADMIT Internal Medicine; ATTEND Internal Medicine

== ENCOUNTER 2022-06-05 11:22 | Inpatient (IN) ==
[2022-06-05] MEDS ORDERED: ONDANSETRON 4 MG/2 ML VIAL IV STA (12:19)
[2022-06-05] MEDS ORDERED: SODIUM CHLORIDE 0.9% 1,000 ML IV STA (12:19)
[2022-06-05 12:42] LABS: Basophils % 0.5 % (0.0-0.8); Eosinophils # 0.1 10*3/uL (0.0-0.87); Eosinophils % 0.8 % (0.00-10.9); Hematocrit 26.5 VOL% (42.0-52.0); Hemoglobin 8.6 GM/DL (14.0-18.0); Immature Granulocytes % 0.6 %; Immature Granulocytes Absolute 0.04 #; Lymphocytes # 1.6 10*3/uL (1.4-4.0); Lymphocytes % 23.7 % (21.2-54.2); Mean Corpuscular HGB Conc 32.5 GM/DL (32-36); Mean Corpuscular Volume 94.3 FL (87-102); Mean Platelet Volume 10.6 FL (9.6-12.0); Monocytes # 0.6 10*3/uL (0.11-0.8); Monocytes % 8.6 % (1.7-12.7); Neutrophils % 65.8 % (38.7-73.9); Platelet Count 201 T/CUMM (130-400); Red Blood Count 2.81 MC/CUMM (3.8-5.5); Red Cell Distribution Width 18.8 % (9.3-17.3); White Blood Count 6.7 T/CUMM (4-12)
[2022-06-05 12:51] LABS: INR 1.1; PT Patient Result 12.5 SECS (10.1-12.1); Partial Thromboplastin Time 28.1 SECS (23.7-32.9)
[2022-06-05 13:04] LABS: Albumin 2.5 G/DL (3.4-5.0); Bilirubin,Total 4.6 MG/DL (0.20-1.00); Calcium 9.1 MG/DL (8.5-10.1); Osmolality,Calculated 280.5 MOS/KG (273-304); Potassium 3.6 MMOL/L (3.5-5.1); Total Protein 6.7 G/DL (6.4-8.2)
[2022-06-05] MEDS ORDERED: PROMETHAZINE 25 MG/1 ML VIAL IV PRN (14:53)
[2022-06-05] MEDS ORDERED: PROMETHAZINE 25 MG/1 ML VIAL ONE (15:22)
[2022-06-05] MEDS: PROMETHAZINE INJ 12.5 MG in SODIUM CHLORIDE 0.9% 50 ML IV PRN ×2 (15:27→23:58)
[2022-06-05] MEDS ORDERED: AMIODARONE 150 MG/3 ML VIAL IV SCH ×2 (15:30)
[2022-06-05] MEDS: SODIUM CHLORIDE 0.9% 1,000 ML IV SCH (16:30)
[2022-06-05] MEDS: ONDANSETRON 4 MG/2 ML VIAL IV PRN (17:35)
[2022-06-05] MEDS: MORPHINE 2 MG/1 ML SYRINGE IV PRN ×2 (19:28→23:59)
[2022-06-05] MEDS: AMIODARONE INJ 100 MG in DEXTROSE 5% 100 ML IV SCH (21:26)
[2022-06-06] MEDS: SODIUM CHLORIDE 0.9% 1,000 ML IV SCH ×2 (02:50→14:10)
[2022-06-06] MEDS: ONDANSETRON 4 MG/2 ML VIAL IV PRN ×2 (02:51→08:33)
[2022-06-06] MEDS: MORPHINE 2 MG/1 ML SYRINGE IV PRN ×2 (03:59→08:37)
[2022-06-06 04:33] LABS: Basophils % 0.5 % (0.0-0.8); Eosinophils # 0.1 10*3/uL (0.0-0.87); Eosinophils % 0.9 % (0.00-10.9); Hematocrit 24.5 VOL% (42.0-52.0); Hemoglobin 7.7 GM/DL (14.0-18.0); Immature Granulocytes % 0.7 %; Immature Granulocytes Absolute 0.04 #; Lymphocytes # 1.3 10*3/uL (1.4-4.0); Lymphocytes % 21.7 % (21.2-54.2); Mean Corpuscular HGB Conc 31.4 GM/DL (32-36); Mean Corpuscular Volume 96.1 FL (87-102); Mean Platelet Volume 10.4 FL (9.6-12.0); Monocytes # 0.6 10*3/uL (0.11-0.8); Monocytes % 9.7 % (1.7-12.7); Neutrophils % 66.5 % (38.7-73.9); Platelet Count 178 T/CUMM (130-400); Red Blood Count 2.55 MC/CUMM (3.8-5.5); Red Cell Distribution Width 18.8 % (9.3-17.3); White Blood Count 5.8 T/CUMM (4-12)
[2022-06-06 05:04] LABS: Albumin 2.3 G/DL (3.4-5.0); Bilirubin,Total 4.1 MG/DL (0.20-1.00); Calcium 8.4 MG/DL (8.5-10.1); Osmolality,Calculated 290.7 MOS/KG (273-304); Potassium 3.4 MMOL/L (3.5-5.1)
[2022-06-06] MEDS: PROMETHAZINE INJ 12.5 MG in SODIUM CHLORIDE 0.9% 50 ML IV PRN (05:55)
[2022-06-06] MEDS: POTASSIUM CHLORIDE RIDER 10 MEQ/100 ML PREMIX IV PRN (08:39)
[2022-06-06] MEDS ORDERED: PANTOPRAZOLE 40 MG TABLET PO SCH (09:00)
[2022-06-06] MEDS: PANTOPRAZOLE 40 MG VIAL IV SCH (09:44)
[2022-06-06] MEDS ORDERED: PHENOL 1.4% THROAT SPRAY 177 ML BOTTLE PO PRN (11:14)
[2022-06-06] MEDS: AMIODARONE INJ 100 MG in DEXTROSE 5% 100 ML IV SCH (22:24)
[2022-06-07] MEDS: MORPHINE 2 MG/1 ML SYRINGE IV PRN ×3 (01:39→23:38)
[2022-06-07] MEDS: SODIUM CHLORIDE 0.9% 1,000 ML IV SCH ×3 (01:40→22:38)
[2022-06-07 05:42] LABS: Basophils % 0.5 % (0.0-0.8); Eosinophils # 0.1 10*3/uL (0.0-0.87); Eosinophils % 1.2 % (0.00-10.9); Hematocrit 23.5 VOL% (42.0-52.0); Hemoglobin 7.2 GM/DL (14.0-18.0); Immature Granulocytes % 0.9 %; Immature Granulocytes Absolute 0.06 #; Lymphocytes # 1.7 10*3/uL (1.4-4.0); Lymphocytes % 26.1 % (21.2-54.2); Mean Corpuscular HGB Conc 30.6 GM/DL (32-36); Mean Corpuscular Volume 98.7 FL (87-102); Mean Platelet Volume 10.1 FL (9.6-12.0); Monocytes # 0.4 10*3/uL (0.11-0.8); Monocytes % 6.8 % (1.7-12.7); Neutrophils % 64.5 % (38.7-73.9); Platelet Count 194 T/CUMM (130-400); Red Blood Count 2.38 MC/CUMM (3.8-5.5); Red Cell Distribution Width 18.8 % (9.3-17.3); White Blood Count 6.5 T/CUMM (4-12)
[2022-06-07 05:50] LABS: Osmolality,Calculated 287.8 MOS/KG (273-304); Potassium 3.1 MMOL/L (3.5-5.1)
[2022-06-07] MEDS: PANTOPRAZOLE 40 MG VIAL IV SCH (10:09)
[2022-06-07] MEDS: POTASSIUM CHLORIDE RIDER 10 MEQ/100 ML PREMIX IV PRN ×4 (10:20→16:36)
[2022-06-07] MEDS: LACTATED RINGERS 1,000 ML IV SCH (10:21)
[2022-06-07] MEDS ORDERED: fentaNYL 100 MCG/2 ML VIAL ONE (12:09)
[2022-06-07] MEDS ORDERED: MIDAZOLAM 2 MG/2 ML VIAL ONE (12:09)
[2022-06-07] MEDS ORDERED: ROCURONIUM 50 MG/5 ML VIAL IV ONE (12:25)
[2022-06-07] MEDS ORDERED: propofoL 200 MG/20 ML VIAL IV ONE (12:25)
[2022-06-07] MEDS ORDERED: LIDOCAINE 2% 5 ML VIAL ONE (12:25)
[2022-06-07] MEDS ORDERED: SUCCINYLCHOLINE 200 MG/10 ML VIAL ONE (12:25)
[2022-06-07] MEDS ORDERED: ONDANSETRON 4 MG/2 ML VIAL ONE (12:25)
[2022-06-07] MEDS ORDERED: PHENYLEPHRINE 1 MG/10 ML SYRINGE IV ONE (12:55)
[2022-06-08] MEDS: AMIODARONE INJ 100 MG in DEXTROSE 5% 100 ML IV SCH ×2 (01:33→21:02)
[2022-06-08] MEDS: SODIUM CHLORIDE 0.9% 1,000 ML IV SCH ×2 (04:23→16:19)
[2022-06-08] MEDS: MORPHINE 2 MG/1 ML SYRINGE IV PRN ×4 (05:36→22:03)
[2022-06-08 06:06] LABS: Osmolality,Calculated 287.7 MOS/KG (273-304); Potassium 3.4 MMOL/L (3.5-5.1)
[2022-06-08 06:50] LABS: Basophils % 0.4 % (0.0-0.8); Eosinophils # 0.1 10*3/uL (0.0-0.87); Eosinophils % 1.7 % (0.00-10.9); Hematocrit 22.4 VOL% (42.0-52.0); Hemoglobin 6.8 GM/DL (14.0-18.0); Immature Granulocytes % 0.8 %; Immature Granulocytes Absolute 0.04 #; Lymphocytes # 0.9 10*3/uL (1.4-4.0); Lymphocytes % 18.2 % (21.2-54.2); Mean Corpuscular HGB Conc 30.4 GM/DL (32-36); Mean Platelet Volume 10.4 FL (9.6-12.0); Monocytes # 0.4 10*3/uL (0.11-0.8); Monocytes % 7.6 % (1.7-12.7); Neutrophils % 71.3 % (38.7-73.9); Red Blood Count 2.24 MC/CUMM (3.8-5.5); Red Cell Distribution Width 18.3 % (9.3-17.3); White Blood Count 4.7 T/CUMM (4-12)
[2022-06-08 06:51] LABS: Platelet Count 143 T/CUMM (130-400)
[2022-06-08] MEDS: PANTOPRAZOLE 40 MG VIAL IV SCH (08:53)
[2022-06-08] MEDS: POTASSIUM CHLORIDE RIDER 10 MEQ/100 ML PREMIX IV PRN (09:03)
[2022-06-08] MEDS ORDERED: fentaNYL 100 MCG/2 ML VIAL ONE (09:57)
[2022-06-08] MEDS ORDERED: ROCURONIUM 50 MG/5 ML VIAL IV ONE (09:57)
[2022-06-08] MEDS ORDERED: propofoL 200 MG/20 ML VIAL IV ONE ×2 (09:57→10:07)
[2022-06-08] MEDS ORDERED: LIDOCAINE 2% 5 ML VIAL ONE (09:57)
[2022-06-08] MEDS ORDERED: MIDAZOLAM 2 MG/2 ML VIAL ONE ×2 (09:58→10:55)
[2022-06-08] MEDS ORDERED: SUCCINYLCHOLINE 200 MG/10 ML VIAL ONE (10:07)
[2022-06-08] MEDS ORDERED: ONDANSETRON 4 MG/2 ML VIAL ONE (10:10)
[2022-06-08] MEDS ORDERED: SEVOFLURANE 1 UNIT/15 MINUTE INH ONE ×2 (10:11→12:16)
[2022-06-08] MEDS ORDERED: TISSUE ADHESIVE 1 EACH APPLICATOR TOP ONE (12:06)
[2022-06-08] MEDS ORDERED: NEOSTIGMINE 10 MG/10 ML VIAL ONE (12:13)
[2022-06-08] MEDS ORDERED: GLYCOPYRROLATE 0.4 MG/2 ML VIAL ONE (12:13)
[2022-06-08] MEDS ORDERED: HYDROmorphone 1 MG/1 ML SYRINGE ONE (12:17)
[2022-06-08] MEDS: LACTATED RINGERS 1,000 ML IV SCH (21:52)
[2022-06-09] MEDS: SODIUM CHLORIDE 0.9% 1,000 ML IV SCH ×2 (01:59→16:45)
[2022-06-09] MEDS: MORPHINE 2 MG/1 ML SYRINGE IV PRN ×3 (02:00→10:15)
[2022-06-09] MEDS ORDERED: oxyCODONE/ACETAMINOPHEN 5-325 MG TABLET PO PRN (08:21)
[2022-06-09] MEDS: PANTOPRAZOLE 40 MG VIAL IV SCH (08:58)
[2022-06-09] MEDS ORDERED: HEPARIN LOCK FLUSH 500 UNIT/5 ML SYRINGE IV ONE (11:51)
[2022-06-09] MEDS: LACTATED RINGERS 1,000 ML IV SCH (11:54)
[2022-06-09 12:32] VITALS: BP 130/75
== END 2022-06-09 12:58 | disposition home health service (06) | DRG 327 ==
LOC: N.ED 11:22 → N.EDINP 11:22 → SUATTDRO 14:53 → N.EDINP 20:30 → N.TELES 20:42
PROVIDERS: ADMIT Internal Medicine; ATTEND Internal Medicine Geriatric Medicine

== ENCOUNTER 2022-07-02 17:25 | Inpatient (IN) ==
[2022-07-02 18:36] LABS: Eosinophils % 1.1 % (0.00-10.9); Immature Granulocytes % 0.8 %; Immature Granulocytes Absolute 0.02 #; Lymphocytes # 0.7 10*3/uL (1.4-4.0); Mean Corpuscular HGB Conc 31.2 GM/DL (32-36); Mean Corpuscular Volume 101.6 FL (87-102); Mean Platelet Volume 13.4 FL (9.6-12.0); Monocytes # 0.3 10*3/uL (0.11-0.8); Monocytes % 9.5 % (1.7-12.7); Neutrophils % 60.6 % (38.7-73.9); Platelet Count 71 T/CUMM (130-400); Red Blood Count 1.23 MC/CUMM (3.8-5.5); Red Cell Distribution Width 18.4 % (9.3-17.3); White Blood Count 2.64 T/CUMM (4-12)
[2022-07-02 18:43] LABS: Hematocrit 12.5 VOL% (42.0-52.0); Hemoglobin 3.9 GM/DL (14.0-18.0)
[2022-07-02 18:46] LABS: INR 1.5; PT Patient Result 16.3 SECS (10.1-12.1)
[2022-07-02] MEDS ORDERED: SODIUM CHLORIDE 0.9% 1,000 ML IV PRN (18:48)
[2022-07-02 18:56] LABS: Albumin 2.1 G/DL (3.4-5.0); Calcium 7.7 MG/DL (8.5-10.1); Osmolality,Calculated 282.7 MOS/KG (273-304); Potassium 3.9 MMOL/L (3.5-5.1); Total Protein 4.8 G/DL (6.4-8.2)
[2022-07-02 18:58] LABS: Lactic Acid 2.1 MMOL/L (0.4-2.0)
[2022-07-02] MEDS ORDERED: PANTOPRAZOLE 40 MG VIAL IV STA (19:23)
[2022-07-02] MEDS ORDERED: CALCIUM GLUCONATE RIDER 2,000 MG/100 ML PREMIX IV ONE ×2 (19:23→21:20)
[2022-07-02] MEDS ORDERED: LACTULOSE 20 GM/30 ML UDCUP PO STA (19:23)
[2022-07-02] MEDS ORDERED: GLUCAGON 1 MG VIAL IM PRN (19:33)
[2022-07-02] MEDS ORDERED: SIMETHICONE CHEW 125 MG TABLET PO PRN (19:33)
[2022-07-02] MEDS ORDERED: ONDANSETRON 4 MG/2 ML VIAL IV PRN (19:33)
[2022-07-02] MEDS ORDERED: ACETAMINOPHEN 325 MG TABLET PO PRN (19:33)
[2022-07-02] MEDS ORDERED: DEXTROSE 10% 250 ML BAG IV PRN (19:53)
[2022-07-02 20:19] LABS: Atypical Lymphocytes Few; Band Neutrophils 3 % (0-10); Eosinophils 4 % (0-10); Hypochromia 1+; Lymphocytes 31 % (20-55); Metamyelocytes 1 %; Microcytosis 1+; Platelet Estimate Decreased; Total Cells Counted 100
[2022-07-02 20:30] LABS: Bilirubin,Urine Negative (Negative); Blood, Urine Negative (Negative); Glucose,Urine (UA) Negative (Negative); Ketones,Urine Negative (Negative); Nitrite,Urine Negative (Negative); Protein,Urine Negative (Negative); Urine Appearance Clear (Clear); Urine Color Yellow (Yellow); Urine Specific Gravity 1.015 (1.001-1.035)
[2022-07-02 20:31] LABS: Urine Urobilinogen 0.2 eU/dL (<2.0)
[2022-07-02 20:42] LABS: RBC,Urine 1 /HPF (0-4); Squamous Epithelial Cell,Urine Occasional /HPF (0-10)
[2022-07-02] MEDS ORDERED: ONDANSETRON ODT 4 MG TABLET PO PRN (21:00)
[2022-07-02] MEDS: LACTATED RINGERS 1,000 ML IV SCH (21:16)
[2022-07-02] MEDS: DOCUSATE SODIUM 100 MG CAPSULE PO SCH (22:44)
[2022-07-02] MEDS: TAMSULOSIN 0.4 MG CAPSULE PO SCH (22:44)
[2022-07-02] MEDS: AMIODARONE 200 MG TABLET PO SCH (22:44)
[2022-07-02] MEDS: GABAPENTIN 300 MG CAPSULE PO SCH (22:44)
[2022-07-02] MEDS: BACLOFEN 10 MG TABLET PO SCH (22:44)
[2022-07-02] MEDS: LOPERAMIDE 2 MG CAPSULE PO SCH (22:45)
[2022-07-02] MEDS: INSULIN REGULAR 100 UNIT/ML SUBCUT SCH (22:50)
[2022-07-02] MEDS: DIPHENOXYLATE/ATROPINE 2.5-0.025 MG TABLET PO SCH (22:50)
[2022-07-03] MEDS: oxyCODONE IR 5 MG TABLET PO SCH ×4 (00:44→17:12)
[2022-07-03] MEDS ORDERED: HYDROmorphone 1 MG/1 ML SYRINGE IV ONE (01:45)
[2022-07-03] MEDS: rOPINIRole 1 MG TABLET PO SCH ×3 (05:50→17:12)
[2022-07-03] MEDS: CARBIDOPA LEVODOPA PO SCH ×3 (05:55→15:44)
[2022-07-03] MEDS: LACTATED RINGERS 1,000 ML IV SCH ×3 (07:31→14:19)
[2022-07-03 09:00] LABS: Basophils % 0.4 % (0.0-0.8); Eosinophils # 0.1 10*3/uL (0.0-0.87); Eosinophils % 1.9 % (0.00-10.9); Immature Granulocytes % 1.9 %; Immature Granulocytes Absolute 0.05 #; Lymphocytes # 0.7 10*3/uL (1.4-4.0); Lymphocytes % 26.1 % (21.2-54.2); Mean Corpuscular HGB Conc 30.1 GM/DL (32-36); Mean Corpuscular Volume 98.7 FL (87-102); Mean Platelet Volume 11.6 FL (9.6-12.0); Monocytes # 0.2 10*3/uL (0.11-0.8); Neutrophils % 61.7 % (38.7-73.9); Platelet Count 71 T/CUMM (130-400); Red Blood Count 1.58 MC/CUMM (3.8-5.5); Red Cell Distribution Width 19.2 % (9.3-17.3); White Blood Count 2.61 T/CUMM (4-12)
[2022-07-03 09:07] LABS: INR 1.4; PT Patient Result 15.6 SECS (10.1-12.1)
[2022-07-03 09:08] LABS: Hemoglobin 4.7 GM/DL (14.0-18.0)
[2022-07-03 09:09] LABS: Hematocrit 15.6 VOL% (42.0-52.0)
[2022-07-03 09:15] LABS: Albumin 1.7 G/DL (3.4-5.0); Bilirubin,Total 0.9 MG/DL (0.20-1.00); Calcium 7.8 MG/DL (8.5-10.1); Osmolality,Calculated 283.5 MOS/KG (273-304); Potassium 3.5 MMOL/L (3.5-5.1); Total Protein 4.3 G/DL (6.4-8.2)
[2022-07-03 09:33] LABS: Band Neutrophils 2 % (0-10); Eosinophils 3 % (0-10); Lymphocytes 19 % (20-55); Platelet Estimate Decreased; Total Cells Counted 100
[2022-07-03 09:34] LABS: Hypochromia Slight; Microcytosis Slight
[2022-07-03] MEDS: LOPERAMIDE 2 MG CAPSULE PO SCH ×4 (10:12→21:34)
[2022-07-03] MEDS: DIPHENOXYLATE/ATROPINE 2.5-0.025 MG TABLET PO SCH ×4 (10:12→21:35)
[2022-07-03] MEDS: PANTOPRAZOLE 40 MG TABLET PO SCH (10:12)
[2022-07-03] MEDS: TAMSULOSIN 0.4 MG CAPSULE PO SCH ×2 (10:12→21:34)
[2022-07-03] MEDS: LORATADINE 10 MG TABLET PO SCH (10:12)
[2022-07-03] MEDS: GABAPENTIN 300 MG CAPSULE PO SCH ×3 (10:13→21:33)
[2022-07-03] MEDS: AMIODARONE 200 MG TABLET PO SCH ×2 (10:13→21:34)
[2022-07-03] MEDS: BACLOFEN 10 MG TABLET PO SCH ×3 (10:13→21:33)
[2022-07-03] MEDS: MULTIVITAMIN (CENTRUM) TABLET PO SCH (10:13)
[2022-07-03] MEDS: FINASTERIDE 5 MG TABLET PO SCH (10:13)
[2022-07-03] MEDS: DOCUSATE SODIUM 100 MG CAPSULE PO SCH ×2 (11:29→21:35)
[2022-07-03] MEDS: AMANTADINE 100 MG CAPSULE PO SCH (11:29)
[2022-07-03] MEDS: LIPASE PROTEASE AMYLASE PO SCH ×3 (11:29→16:27)
[2022-07-03] MEDS: INSULIN REGULAR 100 UNIT/ML SUBCUT SCH ×4 (11:29→21:35)
[2022-07-03] MEDS ORDERED: SODIUM CHLORIDE 0.9% 1,000 ML IV PRN (11:53)
[2022-07-03] MEDS: MENTHOL/ZINC OXIDE OINT 71 GM JAR TOP SCH ×2 (16:27→21:35)
[2022-07-04] MEDS: LACTATED RINGERS 1,000 ML IV SCH ×2 (00:20→10:50)
[2022-07-04] MEDS: oxyCODONE IR 5 MG TABLET PO SCH ×3 (00:23→13:07)
[2022-07-04 05:29] LABS: Basophils % 0.3 % (0.0-0.8); Eosinophils # 0.1 10*3/uL (0.0-0.87); Eosinophils % 3.1 % (0.00-10.9); Hemoglobin 6.9 GM/DL (14.0-18.0); Immature Granulocytes % 3.1 %; Immature Granulocytes Absolute 0.12 #; Lymphocytes # 1.1 10*3/uL (1.4-4.0); Lymphocytes % 28.1 % (21.2-54.2); Mean Corpuscular HGB Conc 31.4 GM/DL (32-36); Mean Corpuscular Volume 95.7 FL (87-102); Mean Platelet Volume 11.8 FL (9.6-12.0); Monocytes # 0.3 10*3/uL (0.11-0.8); NRBC # 0.02 10*3/uL; Neutrophils % 58.4 % (38.7-73.9); Platelet Count 97 T/CUMM (130-400); Red Cell Distribution Width 21.6 % (9.3-17.3); White Blood Count 3.85 T/CUMM (4-12)
[2022-07-04 05:45] LABS: % Iron Saturation 25.9 % (18-50)
[2022-07-04 05:47] LABS: Albumin 1.9 G/DL (3.4-5.0); Bilirubin,Total 1.1 MG/DL (0.20-1.00); Calcium 7.9 MG/DL (8.5-10.1); Osmolality,Calculated 280.4 MOS/KG (273-304); Potassium 4.1 MMOL/L (3.5-5.1); Total Protein 4.8 G/DL (6.4-8.2)
[2022-07-04] MEDS: rOPINIRole 1 MG TABLET PO SCH ×3 (05:49→15:59)
[2022-07-04] MEDS: CARBIDOPA LEVODOPA PO SCH ×3 (05:50→16:00)
[2022-07-04 05:56] LABS: Band Neutrophils 3 % (0-10); Eosinophils 6 % (0-10); Lymphocytes 21 % (20-55); Microcytosis 1+; Polychromasia Slight; Promyelocytes 1 %; Total Cells Counted 100
[2022-07-04 05:57] LABS: Anisocytosis 1+; Hypochromia Slight; Ovalocytes Slight; Platelet Estimate Decreased
[2022-07-04] MEDS ORDERED: SODIUM CHLORIDE 0.9% 1,000 ML IV PRN (08:23)
[2022-07-04] MEDS: INSULIN REGULAR 100 UNIT/ML SUBCUT SCH ×3 (08:34→17:19)
[2022-07-04] MEDS: LOPERAMIDE 2 MG CAPSULE PO SCH ×3 (10:52→17:20)
[2022-07-04] MEDS: FINASTERIDE 5 MG TABLET PO SCH (10:52)
[2022-07-04] MEDS: MULTIVITAMIN (CENTRUM) TABLET PO SCH (10:52)
[2022-07-04] MEDS: LORATADINE 10 MG TABLET PO SCH (10:53)
[2022-07-04] MEDS: DIPHENOXYLATE/ATROPINE 2.5-0.025 MG TABLET PO SCH ×3 (10:53→17:21)
[2022-07-04] MEDS: DOCUSATE SODIUM 100 MG CAPSULE PO SCH (10:53)
[2022-07-04] MEDS: PANTOPRAZOLE 40 MG TABLET PO SCH (10:53)
[2022-07-04] MEDS: BACLOFEN 10 MG TABLET PO SCH ×2 (10:53→15:58)
[2022-07-04] MEDS: AMANTADINE 100 MG CAPSULE PO SCH (10:53)
[2022-07-04] MEDS: GABAPENTIN 300 MG CAPSULE PO SCH ×2 (10:53→15:58)
[2022-07-04] MEDS: TAMSULOSIN 0.4 MG CAPSULE PO SCH (10:53)
[2022-07-04] MEDS: AMIODARONE 200 MG TABLET PO SCH (10:53)
[2022-07-04] MEDS: MENTHOL/ZINC OXIDE OINT 71 GM JAR TOP SCH (10:57)
[2022-07-04] MEDS: LIPASE PROTEASE AMYLASE PO SCH ×3 (10:57→16:30)
[2022-07-04 16:41] VITALS: BP 107/68
== END 2022-07-04 16:42 | disposition home health service (06) | DRG 809 ==
LOC: EDUNIT# → EDBD → N.ED 17:25 → SUATTDRO 19:33 → N.EDINP 19:33 → N.TELES 22:30
PROVIDERS: ADMIT Family Medicine; ATTEND Internal Medicine